=== PATIENT | male | born 1955 | race Caucasian/White ===

== ENCOUNTER 2020-02-24 07:52 | Day surgery (SDC) | payer MEDICARE, MEDICAID ==
[~2020-02-24 07:52] MED LIST: Midazolam 1 MG/ML 2 ML SDV ONE; fentaNYL 100 MCG/2 ML SDV ONE
[2020-02-24] MEDS ORDERED: fentaNYL 100 MCG/2 ML SDV IV ONE ×3 (07:53→08:43)
[2020-02-24] MEDS ORDERED: Midazolam 1 MG/ML 2 ML SDV IV ONE ×5 (07:53→08:46)
[2020-02-24] MEDS ORDERED: Dextrose 5%-0.45% NaCl 1,000 ML IV SCH (08:20)
--- NOTE | 2020-02-24 11:25 | OR ---
DATE: 02/24/2020 PREOPERATIVE DIAGNOSIS: Change in bowel function with significant diarrhea. POSTOPERATIVE DIAGNOSIS: Change in bowel function with significant diarrhea. PROCEDURE: Total colonoscopy. ANESTHESIA: Conscious sedation with IV Versed and fentanyl. SPECIMEN: None. OPERATIVE FINDINGS: Normal colonoscopy. RECOMMENDATION: His diarrhea is most likely functional, is not related to any structural problems in the colon that I can see. He will need alterations of his diet. PROCEDURE IN DETAIL: After adequate preparation, a colonoscope was inserted into the rectum. This was easily passed all the way to the cecum. Confirmation of the cecum was made by visualization of the ileocecal valve and the appendiceal opening. A photograph of the appendiceal opening was taken. The bowel prep was good. On withdrawal of the scope, there were no abnormalities. Anal and rectal examinations were also normal. Air was suctioned from the colon and the scope removed. [facility] /[id number]
== END 2020-02-24 10:30 | disposition home or self-care (01) ==
LOC: DL.ENDO 07:52
PROVIDERS: ATTEND Surgery
DX: R19.4 Change in bowel habit (principal); R19.7 Diarrhea, unspecified; Z01.812 Encounter for preprocedural laboratory examination; Z20.828 Contact with and (suspected) exposure to other viral communicable diseases; E11.9 Type 2 diabetes mellitus without complications; I10 Essential (primary) hypertension; R25.1 Tremor, unspecified; Z79.84 Long term (current) use of oral hypoglycemic drugs; Z79.899 Other long term (current) drug therapy; Z86.010 Personal history of colon polyps
CPT/HCPCS: J2250; J3010; J7042; U0002

== ENCOUNTER 2020-05-25 23:50 | Emergency (ER) | payer MEDICARE, MEDICAID ==
--- NOTE | 2020-05-25 23:58 | EDM.PDOC ---
ED HPI GENERAL MEDICAL PROBLEM - General Stated Complaint: DIABETIC COUNT IS 550... Time Seen by Provider: 05/25/20 23:57 Source of Information: Reports: Patient History Limitations: Reports: No Limitations - History of Present Illness INITIAL COMMENTS - FREE TEXT/NARRATIVE: c/o BS > 500. states was d/c from [facility] and couldn't find his insulin past 3 days and so hadn't used any. normally check BS twice daily and tonight it was high. denies CP/SOB/discomfort anywhere. - Related Data Allergies Allergy/AdvReac Type Severity Reaction Status Date / Time No Known Allergies Allergy Verified 05/26/20 00:00 Home Meds: Home Meds Aspirin [Lo-Dose Aspirin EC] 81 mg PO DAILY 02/20/20 [History] Cetirizine [ZyrTEC] 10 mg PO DAILY 02/20/20 [History] Dapagliflozin Propanediol [Farxiga] 10 mg PO DAILY 02/20/20 [History] Gabapentin [Neurontin] 300 mg PO DAILY PRN 02/20/20 [History] Glimepiride 4 mg PO DAILY 02/20/20 [History] Ibuprofen 600 mg PO TID PRN 02/20/20 [History] Loperamide [Imodium] 2 mg PO DAILY PRN 02/20/20 [History] Montelukast [Singulair] 10 mg PO DAILY 02/20/20 [History] Multivit-Min/Folic/Vit K/Lycop [One-A-Day Men's Tablet] 1 tab PO DAILY 02/20/20 [History] Omeprazole 20 mg PO BEDTIME 02/20/20 [History] Propranolol [Inderal LA 24 Hr] 80 mg PO DAILY 02/20/20 [History] Vortioxetine Hydrobromide [Brintellix] 10 mg PO DAILY 02/20/20 [History] atorvaSTATin [Lipitor] 10 mg PO BEDTIME 02/20/20 [History] busPIRone [Buspar] 15 mg PO BID 02/20/20 [History] hydrOXYzine HCL [Atarax] 25 mg PO Q4H PRN 02/20/20 [History] lamoTRIgine [Lamotrigine] 25 mg PO DAILY 02/20/20 [History] lamoTRIgine [Lamotrigine] 150 mg PO BEDTIME 02/20/20 [History] metFORMIN [Glucophage] 1,000 mg PO BIDMEALS 02/20/20 [History] Past Medical History HEENT History: Reports: Allergic Rhinitis, Cataract Cardiovascular History: Reports: High Cholesterol, Hypertension Respiratory History: Reports: SOB Gastrointestinal History: Reports: Chronic Diarrhea, GERD Genitourinary History: Reports: Other (See Below) Other Genitourinary History: NOCTURIA, FREQUENCY Musculoskeletal History: Reports: Arthritis, Back Pain, Chronic, Gout, Other (See Below) Other Musculoskeletal History: HERNIATION OF DISK L5 & S1, SPINAL STENOSIS @ L5 & S1 Neurological History: Reports: Other (See Below) Other Neuro History: DEMENTIA. HAND TREMORS Psychiatric History: Reports: Anxiety, Bipolar, Depression, Other (See Below) Other Psychiatric History: MENTAL CONFUSION Endocrine/Metabolic History: Reports: Diabetes, Type II Hematologic History: Reports: None Immunologic History: Reports: None Oncologic (Cancer) History: Reports: None Dermatologic History: Reports: Psoriasis - Infectious Disease History Infectious Disease History: Reports: Chicken Pox, Mumps - Past Surgical History Head Surgeries/Procedures: Reports: None HEENT Surgical History: Reports: None Cardiovascular Surgical History: Reports: None Respiratory Surgical History: Reports: None GI Surgical History: Reports: Colonoscopy Male Surgical History: Reports: None Endocrine Surgical History: Reports: None Musculoskeletal Surgical History: Reports: None Social & Family History - Caffeine Use Caffeine Use: Reports: Coffee Caffeine Use Comment: 8 oz daily ED ROS GENERAL - Review of Systems Review Of Systems: Comprehensive ROS is negative, except as noted in HPI. ED EXAM, GENERAL - Physical Exam Exam: See Below Exam Limited By: No Limitations General Appearance: Alert, WD/WN, No Apparent Distress Ears: Hearing Grossly Normal Throat/Mouth: Normal Voice, No Airway Compromise Head: Atraumatic Neck: Non-Tender, Full Range of Motion Respiratory/Chest: No Respiratory Distress Cardiovascular: Regular Rate, Rhythm GI/Abdominal: Soft, Non-Tender (Male) Exam: Deferred Rectal (Males) Exam: Deferred Neurological: Alert, Oriented, Normal Cognition, Normal Gait, No Motor/Sensory Deficits Psychiatric: Normal Affect, Normal Mood Skin Exam: Warm, Dry, Normal Color Lymphatic: No Adenopathy Course - Vital Signs Last Recorded V/S: Last Vital Signs Temp 35.8 C L 05/26/20 00:00 Pulse 84 05/26/20 00:00 Resp 16 05/26/20 00:00 BP 167/90 H 05/26/20 00:00 Pulse Ox 96 05/26/20 00:00 - Orders/Labs/Meds Orders: Active Orders 24 hr Category Date Time Status Sodium Chloride 0.9% [Normal Saline] 1,000 ml Med 05/26/20 00:53 Active IV .BOLUS Medication Orders Sodium Chloride (Normal Saline) 1,000 mls @ 999 mls/hr IV .BOLUS ONE Stop: 05/26/20 01:53 Last Admin: 05/26/20 00:54 Dose: 999 mls/hr Documented by: ROGE Labs: Laboratory Tests 05/25/20 05/26/20 05/26/20 Range/Units 23:56 00:06 00:06 WBC 8.2 (5.0-10.0) 10^3/uL RBC 4.86 (4.6-6.2) 10^6/uL Hgb 15.7 (14.0-18.0) g/dL Hct 44.9 (40.0-54.0) % MCV 92.4 D (80-100) fL MCH 32.3 (27.0-34.0) pg MCHC 35.0 (33.0-35.0) g/dL Plt Count 207 (150-450) 10^3/uL Neut % (Auto) 42.6 (42.2-75.2) % Lymph % (Auto) 39.9 (20.5-50.1) % [place] % (Auto) 12.6 H (2-8) % Eos % (Auto) 4.0 H (1.0-3.0) % Baso % (Auto) 0.9 (0.0-1.0) % Sodium 131 L (136-145) mmol/L Potassium 4.3 (3.5-5.1) mmol/L Chloride 94 L (98-107) mmol/L Carbon Dioxide 23 (21-32) mmol/L Anion Gap 18.3 H (7-13) mEq/L BUN 26 H (7-18) mg/dL Creatinine 1.23 (0.70-1.30) mg/dL Est Cr Clr Drug Dosing 61.00 mL/min Estimated GFR (MDRD) 59 BUN/Creatinine Ratio 21.1 (No establ ref range) Glucose 536 H* (74-99) mg/dL POC Glucose > 500 H* (70-105) mg/dl Lactic Acid (0.4-2.0) mmol/L Calcium 8.6 (8.5-10.1) mg/dL Total Bilirubin 0.5 (0.2-1.0) mg/dL AST 22 (15-37) U/L ALT 58 (16-63) U/L Alkaline Phosphatase 175 H (46-116) U/L Total Protein 7.4 (6.4-8.2) g/dL Albumin 4.0 (3.4-5.0) g/dL Globulin 3.4 Albumin/Globulin Ratio 1.2 Ketones Negative 05/26/20 05/26/20 Range/Units 00:06 00:51 WBC (5.0-10.0) 10^3/uL RBC (4.6-6.2) 10^6/uL Hgb (14.0-18.0) g/dL Hct (40.0-54.0) % MCV (80-100) fL MCH (27.0-34.0) pg MCHC (33.0-35.0) g/dL Plt Count (150-450) 10^3/uL Neut % (Auto) (42.2-75.2) % Lymph % (Auto) (20.5-50.1) % [place] % (Auto) (2-8) % Eos % (Auto) (1.0-3.0) % Baso % (Auto) (0.0-1.0) % Sodium (136-145) mmol/L Potassium (3.5-5.1) mmol/L Chloride (98-107) mmol/L Carbon Dioxide (21-32) mmol/L Anion Gap (7-13) mEq/L BUN (7-18) mg/dL Creatinine (0.70-1.30) mg/dL Est Cr Clr Drug Dosing mL/min Estimated GFR (MDRD) BUN/Creatinine Ratio (No establ ref range) Glucose (74-99) mg/dL POC Glucose 451 H* (70-105) mg/dl Lactic Acid 2.0 (0.4-2.0) mmol/L Calcium (8.5-10.1) mg/dL Total Bilirubin (0.2-1.0) mg/dL AST (15-37) U/L ALT (16-63) U/L Alkaline Phosphatase (46-116) U/L Total Protein (6.4-8.2) g/dL Albumin (3.4-5.0) g/dL Globulin Albumin/Globulin Ratio Ketones Meds: Medications Generic Name Dose Route Start Last Admin Trade Name Lissette PRN Reason Stop Dose Admin Sodium Chloride 1,000 mls @ 999 mls/hr 05/26/20 00:53 05/26/20 00:54 Normal Saline IV 05/26/20 01:53 999 mls/hr .BOLUS ONE Administration Discontinued Medications Generic Name Dose Route Start Last Admin Trade Name Lissette PRN Reason Stop Dose Admin Dextrose/Water 50 ml 05/26/20 00:12 Dextrose 50% In Water IV ASDIRECTED PRN Hypoglycemia Glucagon 1 mg 05/26/20 00:12 Glucagen IM ASDIRECTED PRN Hypoglycemia Sodium Chloride 1,000 mls @ 999 mls/hr 05/26/20 00:12 05/26/20 00:17 Normal Saline IV 05/26/20 01:12 999 mls/hr .BOLUS ONE Administration Insulin Human Regular 5 unit 05/26/20 00:12 05/26/20 00:18 Humulin R IV 05/26/20 00:13 5 units ONETIME ONE Administration - Re-Assessments/Exams Free Text/Narrative Re-Assessment/Exam: 05/26/20 01:24 results discussed with pt who has no c/o presently. has insulin at home now and will monitor. Departure - Departure Time of Disposition: 01:24 Disposition: Home, Self-Care 01 Condition: Good Clinical Impression: Hyperglycemia - Discharge Information Forms: ED Department Discharge Additional Instructions: 1) monitor blood sugar 2) recheck as needed Sepsis Event Note (ED) - Focused Exam Vital Signs: Vital Signs Temp Pulse Resp BP Pulse Ox 05/26/20 00:00 35.8 C L 84 16 167/90 H 96 - My Orders Last 24 Hours: My Active Orders 05/26/20 00:53 Sodium Chloride 0.9% [Normal Saline] 1,000 ml IV .BOLUS - Assessment/Plan Last 24 Hours: My Active Orders 05/26/20 00:53 Sodium Chloride 0.9% [Normal Saline] 1,000 ml IV .BOLUS
[2020-05-26] MEDS ORDERED: 50% Dextrose in Water 50 ML Syringe IV PRN (00:12)
[2020-05-26] MEDS ORDERED: Glucagon,Human Recombinant 1 MG Vial IM PRN (00:12)
[2020-05-26] MEDS: Sodium Chloride 0.9% 1,000 ML IV ONE ×2 (00:17→00:54)
[2020-05-26] MEDS: Insulin Regular, Human 100 Units/ML 3 ML Vial IV ONE (00:18)
[2020-05-26 00:39] LABS: ANION GAP 18.3 mEq/L (7-13); CHLORIDE,CL 94 mmol/L (98-107); SODIUM,NA 131 mmol/L (136-145)
== END 2020-05-26 01:31 | disposition home or self-care (01) ==
LOC: DL.ED 23:50
DX: E11.65 Type 2 diabetes mellitus with hyperglycemia (principal); I10 Essential (primary) hypertension; E78.00 Pure hypercholesterolemia, unspecified; K21.9 Gastro-esophageal reflux disease without esophagitis; F41.9 Anxiety disorder, unspecified; F31.9 Bipolar disorder, unspecified; Z79.82 Long term (current) use of aspirin; Z79.899 Other long term (current) drug therapy
CPT/HCPCS: 36415; 80053; 82009; 82962; 83605; 85025; 99283; 99284; J1815; J7030

== ENCOUNTER 2020-06-11 23:08 | Emergency (ER) | payer MEDICARE, MEDICAID ==
[2020-06-11 23:59] LABS: ANION GAP 16.2 mEq/L (7-13); CHLORIDE,CL 99 mmol/L (98-107); SODIUM,NA 138 mmol/L (136-145)
[2020-06-12] MEDS ORDERED: Iopamidol 612 MG/ML 100 ML Bottle IVPUSH ONE (00:23)
--- NOTE | 2020-06-12 01:04 | CT ---
PROCEDURE INFORMATION: Exam: CT Abdomen And Pelvis With Contrast Exam date and time: 06/12/2020 12:31 AM Age: 64 years old Clinical indication: Other: Abdomen pain TECHNIQUE: Imaging protocol: Computed tomography of the abdomen and pelvis with intravenous contrast. Radiation optimization: All CT scans at this facility use at least one of these dose optimization techniques: automated exposure control; mA and/or kV adjustment per patient size (includes targeted exams where dose is matched to clinical indication); or iterative reconstruction. Contrast material: ISOVUE 300; Contrast volume: 100 ml; Contrast route: INTRAVENOUS (IV); COMPARISON: No relevant prior studies available. FINDINGS: Liver: Normal. No mass. Gallbladder and bile ducts: Normal. No calcified stones. No ductal dilation. Pancreas: Normal. No ductal dilation. Spleen: Normal. No splenomegaly. Adrenal glands: Normal. No mass. Kidneys and ureters: Normal. No hydronephrosis. Stomach and bowel: Unremarkable. No obstruction. No mucosal thickening. Appendix: No evidence of appendicitis. Intraperitoneal space: Unremarkable. No free air. No significant fluid collection. Vasculature: Unremarkable. No abdominal aortic aneurysm. Lymph nodes: Unremarkable. No enlarged lymph nodes. Urinary bladder: Unremarkable as visualized. Reproductive: Unremarkable as visualized. Bones/joints: Unremarkable. No acute fracture. Soft tissues: Unremarkable. IMPRESSION: No acute findings.
--- NOTE | 2020-06-12 01:08 | EDM.PDOC ---
ED HPI GENERAL MEDICAL PROBLEM - General Chief Complaint: Abdominal Pain Stated Complaint: SEVERE STOMACHE PAIN Time Seen by Provider: 06/11/20 23:40 Source of Information: Reports: Patient, RN, RN Notes Reviewed History Limitations: Reports: Other (Forgetfulness, he states this is not new for him) - History of Present Illness INITIAL COMMENTS - FREE TEXT/NARRATIVE: Patient is a 64-year-old male who presents to the ER with complaint of periumbilical abdominal pain. Patient states the pain began about 3 PM today. States he has had some nausea, vomiting, and diarrhea with the pain. Patient admits to chills, denies fever, denies chest pains or shortness of breath. Patient states he was told by a doctor several years ago that if he began to have pain around his bellybutton that he was to go directly to the emergency room. Patient states he thinks he has a history of hernias. Denies any abdominal surgeries, states he does still have his gallbladder and his appendix. Patient is diabetic and takes oral agents.-Before diarrhea began, patient is unable to recall when last normal bowel movement was. Onset: Today, Sudden Lower Abdominal Pain Score (Numeric/FACES): 7 - Related Data Allergies Allergy/AdvReac Type Severity Reaction Status Date / Time No Known Allergies Allergy Verified 06/11/20 23:21 Home Meds: Home Meds Aspirin [Lo-Dose Aspirin EC] 81 mg PO DAILY 02/20/20 [History] Cetirizine [ZyrTEC] 10 mg PO DAILY 02/20/20 [History] Dapagliflozin Propanediol [Farxiga] 10 mg PO DAILY 02/20/20 [History] Gabapentin [Neurontin] 300 mg PO DAILY PRN 02/20/20 [History] Glimepiride 4 mg PO DAILY 02/20/20 [History] Ibuprofen 600 mg PO TID PRN 02/20/20 [History] Loperamide [Imodium] 2 mg PO DAILY PRN 02/20/20 [History] Montelukast [Singulair] 10 mg PO DAILY 02/20/20 [History] Multivit-Min/Folic/Vit K/Lycop [One-A-Day Men's Tablet] 1 tab PO DAILY 02/20/20 [History] Omeprazole 20 mg PO BEDTIME 02/20/20 [History] Propranolol [Inderal LA 24 Hr] 80 mg PO DAILY 02/20/20 [History] Vortioxetine Hydrobromide [Brintellix] 10 mg PO DAILY 02/20/20 [History] atorvaSTATin [Lipitor] 10 mg PO BEDTIME 02/20/20 [History] busPIRone [Buspar] 15 mg PO BID 02/20/20 [History] hydrOXYzine HCL [Atarax] 25 mg PO Q4H PRN 02/20/20 [History] lamoTRIgine [Lamotrigine] 25 mg PO DAILY 02/20/20 [History] lamoTRIgine [Lamotrigine] 150 mg PO BEDTIME 02/20/20 [History] metFORMIN [Glucophage] 1,000 mg PO BIDMEALS 02/20/20 [History] Past Medical History HEENT History: Reports: Allergic Rhinitis, Cataract Cardiovascular History: Reports: High Cholesterol, Hypertension Respiratory History: Reports: SOB Gastrointestinal History: Reports: Chronic Diarrhea, GERD Genitourinary History: Reports: Other (See Below) Other Genitourinary History: NOCTURIA, FREQUENCY Musculoskeletal History: Reports: Arthritis, Back Pain, Chronic, Gout, Other (See Below) Other Musculoskeletal History: HERNIATION OF DISK L5 & S1, SPINAL STENOSIS @ L5 & S1 Neurological History: Reports: Other (See Below) Other Neuro History: DEMENTIA. HAND TREMORS Psychiatric History: Reports: Anxiety, Bipolar, Depression, Other (See Below) Other Psychiatric History: MENTAL CONFUSION Endocrine/Metabolic History: Reports: Diabetes, Type II Hematologic History: Reports: None Immunologic History: Reports: None Oncologic (Cancer) History: Reports: None Dermatologic History: Reports: Psoriasis - Infectious Disease History Infectious Disease History: Reports: Chicken Pox, Mumps - Past Surgical History Head Surgeries/Procedures: Reports: None HEENT Surgical History: Reports: None Cardiovascular Surgical History: Reports: None Respiratory Surgical History: Reports: None GI Surgical History: Reports: Colonoscopy Male Surgical History: Reports: None Endocrine Surgical History: Reports: None Musculoskeletal Surgical History: Reports: None Social & Family History - Tobacco Use Tobacco Use Status *Q: Never Tobacco User Second Hand Smoke Exposure: No - Caffeine Use Caffeine Use: Reports: None Caffeine Use Comment: 8 oz daily - Recreational Drug Use Recreational Drug Use: No ED ROS GENERAL - Review of Systems Review Of Systems: Comprehensive ROS is negative, except as noted in HPI. ED EXAM, GI/ABD - Physical Exam Exam: See Below Exam Limited By: No Limitations General Appearance: Alert, WD/WN, No Apparent Distress Eyes: Bilateral: Normal Appearance, EOMI Ears: Normal External Exam, Hearing Grossly Normal Nose: Normal Inspection Throat/Mouth: Normal Inspection, Normal Voice, No Airway Compromise Head: Atraumatic, Normocephalic Neck: Normal Inspection, Supple, Non-Tender, Full Range of Motion Respiratory/Chest: No Respiratory Distress, Lungs Clear, Normal Breath Sounds, No Accessory Muscle Use, Chest Non-Tender, Decreased Breath Sounds Cardiovascular: Normal Peripheral Pulses, Regular Rate, Rhythm, No Edema, No Gallop, No JVD, No Murmur, No Rub GI/Abdominal Exam: Normal Bowel Sounds, Soft, Non-Tender, No Organomegaly, No Distention, No Abnormal Bruit, No Mass, Pelvis Stable, Tender (Male) Exam: Deferred Rectal (Males) Exam: Deferred Back Exam: Normal Inspection, Full Range of Motion, NT Extremities: Normal Inspection, Normal Range of Motion, Non-Tender, Normal Capillary Refill, No Pedal Edema Neurological: Alert, Oriented, CN II-XII Intact, Normal Gait, Normal Reflexes, No Motor/Sensory Deficits, Memory Loss Remote Events Psychiatric: Normal Affect, Normal Mood, Anxious Skin Exam: Warm, Dry, Intact, Normal Color, No Rash Lymphatic: No Adenopathy Course - Vital Signs Last Recorded V/S: Last Vital Signs Temp 96.7 F L 06/11/20 23:18 Pulse 93 06/11/20 23:18 Resp 20 06/11/20 23:18 BP 141/86 H 06/11/20 23:18 Pulse Ox 97 06/11/20 23:18 - Orders/Labs/Meds Orders: Active Orders 24 hr Category Date Time Status Blood Glucose Check, Bedside [RC] ONETIME Care 06/11/20 23:23 Active Labs: Laboratory Tests 06/11/20 06/11/20 06/11/20 Range/Units 23:19 23:21 23:21 WBC 7.7 (5.0-10.0) 10^3/uL RBC 5.56 (4.6-6.2) 10^6/uL Hgb 17.5 D (14.0-18.0) g/dL Hct 50.6 (40.0-54.0) % MCV 91.0 (80-100) fL MCH 31.5 (27.0-34.0) pg MCHC 34.6 (33.0-35.0) g/dL Plt Count 222 (150-450) 10^3/uL Neut % (Auto) 50.6 (42.2-75.2) % Lymph % (Auto) 30.5 (20.5-50.1) % [place] % (Auto) 16.2 H (2-8) % Eos % (Auto) 2.0 (1.0-3.0) % Baso % (Auto) 0.7 (0.0-1.0) % Sodium 138 (136-145) mmol/L Potassium 4.2 (3.5-5.1) mmol/L Chloride 99 (98-107) mmol/L Carbon Dioxide 27 (21-32) mmol/L Anion Gap 16.2 H (7-13) mEq/L BUN 15 (7-18) mg/dL Creatinine 1.01 (0.70-1.30) mg/dL Est Cr Clr Drug Dosing 74.28 mL/min Estimated GFR (MDRD) > 60 BUN/Creatinine Ratio 14.9 (No establ ref range) Glucose 211 H (74-99) mg/dL POC Glucose 211 H (70-105) mg/dl Lactic Acid (0.4-2.0) mmol/L Calcium 9.9 (8.5-10.1) mg/dL Total Bilirubin 0.5 (0.2-1.0) mg/dL AST 37 (15-37) U/L ALT 79 H (16-63) U/L Alkaline Phosphatase 81 (46-116) U/L Troponin I < 0.017 (0.000-0.056) ng/mL C-Reactive Protein 0.4 (0.0-0.9) mg/dL Total Protein 8.4 H (6.4-8.2) g/dL Albumin 4.5 (3.4-5.0) g/dL Globulin 3.9 Albumin/Globulin Ratio 1.2 Urine Color (YELLOW) Urine Appearance (CLEAR) Urine pH (5.0-9.0) Ur Specific [place] (1.005-1.030) Urine Protein (NEGATIVE) Urine Glucose (UA) (NEGATIVE) Urine Ketones (NEGATIVE) Urine Occult Blood (NEGATIVE) Urine Nitrite (NEGATIVE) Urine Bilirubin (NEGATIVE) Urine Urobilinogen (0.2-1.0) mg/dL Ur Leukocyte Esterase (NEGATIVE) Urine RBC /HPF Urine WBC (0-5/HPF) /HPF Ur Epithelial Cells (NOT SEEN) /HPF Amorphous Sediment (NOT SEEN) /HPF Urine Bacteria (0-FEW/HPF) /HPF Granular Casts (Auto) Urine Mucus (NOT SEEN) /LPF Ethyl Alcohol < 3 (0) mg/dL 06/11/20 06/11/20 Range/Units 23:21 23:35 WBC (5.0-10.0) 10^3/uL RBC (4.6-6.2) 10^6/uL Hgb (14.0-18.0) g/dL Hct (40.0-54.0) % MCV (80-100) fL MCH (27.0-34.0) pg MCHC (33.0-35.0) g/dL Plt Count (150-450) 10^3/uL Neut % (Auto) (42.2-75.2) % Lymph % (Auto) (20.5-50.1) % [place] % (Auto) (2-8) % Eos % (Auto) (1.0-3.0) % Baso % (Auto) (0.0-1.0) % Sodium (136-145) mmol/L Potassium (3.5-5.1) mmol/L Chloride (98-107) mmol/L Carbon Dioxide (21-32) mmol/L Anion Gap (7-13) mEq/L BUN (7-18) mg/dL Creatinine (0.70-1.30) mg/dL Est Cr Clr Drug Dosing mL/min Estimated GFR (MDRD) BUN/Creatinine Ratio (No establ ref range) Glucose (74-99) mg/dL POC Glucose (70-105) mg/dl Lactic Acid 1.1 (0.4-2.0) mmol/L Calcium (8.5-10.1) mg/dL Total Bilirubin (0.2-1.0) mg/dL AST (15-37) U/L ALT (16-63) U/L Alkaline Phosphatase (46-116) U/L Troponin I (0.000-0.056) ng/mL C-Reactive Protein (0.0-0.9) mg/dL Total Protein (6.4-8.2) g/dL Albumin (3.4-5.0) g/dL Globulin Albumin/Globulin Ratio Urine Color Yellow (YELLOW) Urine Appearance Clear (CLEAR) Urine pH 6.0 (5.0-9.0) Ur Specific [place] >= 1.030 (1.005-1.030) Urine Protein 100 H (NEGATIVE) Urine Glucose (UA) 500 H (NEGATIVE) Urine Ketones 15 H (NEGATIVE) Urine Occult Blood Negative (NEGATIVE) Urine Nitrite Negative (NEGATIVE) Urine Bilirubin Negative (NEGATIVE) Urine Urobilinogen 0.2 (0.2-1.0) mg/dL Ur Leukocyte Esterase Negative (NEGATIVE) Urine RBC Not seen /HPF Urine WBC 0-5 (0-5/HPF) /HPF Ur Epithelial Cells Rare (NOT SEEN) /HPF Amorphous Sediment Rare (NOT SEEN) /HPF Urine Bacteria Rare (0-FEW/HPF) /HPF Granular Casts (Auto) Occasional Urine Mucus Few H (NOT SEEN) /LPF Ethyl Alcohol (0) mg/dL Meds: Medications Discontinued Medications Generic Name Dose Route Start Last Admin Trade Name Freq PRN Reason Stop Dose Admin Iopamidol 100 ml 06/12/20 00:23 06/12/20 00:57 Isovue-300 (61%) IVPUSH 06/12/20 00:24 100 ml ONETIME ONE Administration - Radiology Interpretation Free Text/Narrative:: Abdomen/Pelvis with contrast: PROCEDURE INFORMATION: Exam: CT Abdomen And Pelvis With Contrast Exam date and time: 06/12/2020 12:31 AM Age: 64 years old Clinical indication: Other: Abdomen pain TECHNIQUE: Imaging protocol: Computed tomography of the abdomen and pelvis with intravenous contrast. Radiation optimization: All CT scans at this facility use at least one of these dose optimization techniques: automated exposure control; mA and/or kV adjustment per patient size (includes targeted exams where dose is matched to clinical indication); or iterative reconstruction. Contrast material: ISOVUE 300; Contrast volume: 100 ml; Contrast route: INTRAVENOUS (IV); COMPARISON: No relevant prior studies available. FINDINGS: Liver: Normal. No mass. Gallbladder and bile ducts: Normal. No calcified stones. No ductal dilation. Pancreas: Normal. No ductal dilation. Spleen: Normal. No splenomegaly. Adrenal glands: Normal. No mass. Kidneys and ureters: Normal. No hydronephrosis. Stomach and bowel: Unremarkable. No obstruction. No mucosal thickening. Appendix: No evidence of appendicitis. Intraperitoneal space: Unremarkable. No free air. No significant fluid collection. Vasculature: Unremarkable. No abdominal aortic aneurysm. Lymph nodes: Unremarkable. No enlarged lymph nodes. Urinary bladder: Unremarkable as visualized. Reproductive: Unremarkable as visualized. Bones/joints: Unremarkable. No acute fracture. Soft tissues: Unremarkable. IMPRESSION: No acute findings. Thank you for allowing us to participate in the care of your patient. Dictated and Authenticated by: Carina Leroy MD 06/12/2020 1:04 AM Central Time ([place] & [place]) See rad report Departure - Departure Time of Disposition: :21 Disposition: Home, Self-Care 01 Condition: Good Clinical Impression: Gastroenteritis - Discharge Information *PRESCRIPTION DRUG MONITORING PROGRAM REVIEWED*: No *COPY OF PRESCRIPTION DRUG MONITORING REPORT IN PATIENT KIRILL: No Instructions: Viral Gastroenteritis, Adult, [id number], Abdominal Pain, Adult, [id number] Forms: ED Department Discharge Sepsis Event Note (ED) - Evaluation Sepsis Screening Result: No Definite Risk - Focused Exam Vital Signs: Vital Signs Temp Pulse Resp BP Pulse Ox 06/11/20 23:18 96.7 F L 93 20 141/86 H 97 - My Orders Last 24 Hours: My Active Orders 06/11/20 23:23 Blood Glucose Check, Bedside [RC] ONETIME - Assessment/Plan Last 24 Hours: My Active Orders 06/11/20 23:23 Blood Glucose Check, Bedside [RC] ONETIME
== END 2020-06-12 01:30 | disposition home or self-care (01) ==
LOC: DL.ED 23:08
DX: K52.9 Noninfective gastroenteritis and colitis, unspecified (principal); I10 Essential (primary) hypertension; E78.00 Pure hypercholesterolemia, unspecified; K21.9 Gastro-esophageal reflux disease without esophagitis; E11.9 Type 2 diabetes mellitus without complications; F41.9 Anxiety disorder, unspecified; F31.9 Bipolar disorder, unspecified; Z79.82 Long term (current) use of aspirin; Z79.899 Other long term (current) drug therapy
CPT/HCPCS: 36415; 74177; 80053; 80307; 81001; 81003; 82962; 83605; 84484; 85025; 86140; 99282; 99284-25; Q9967

== ENCOUNTER 2020-11-22 01:28 | Emergency (ER) | payer MEDICARE, MEDICAID | END 2020-11-22 02:18 | disposition left against medical advice (07) | LOC: DL.ED 01:28 | DX: Z53.21 Procedure and treatment not carried out due to patient leaving prior to being seen by health care provider (principal) ==

== ENCOUNTER 2021-09-04 11:52 | Emergency (ER) | payer MEDICARE, MEDICAID ==
[2021-09-04 14:03] LABS: ANION GAP 18.1 mEq/L (7-13); CHLORIDE,CL 98 mmol/L (98-107); SODIUM,NA 136 mmol/L (136-145)
[2021-09-04] MEDS ORDERED: Iopamidol 612 MG/ML 100 ML Bottle IVPUSH ONE (14:20)
[2021-09-04] MEDS ORDERED: HYDROmorphone 0.5 MG/0.5 ML Syringe IVPUSH ONE (14:53)
[2021-09-04] MEDS ORDERED: Piperacillin/Tazobactam 4.5 GM in Sodium Chloride 0.9% 100 ML IV ONE (14:53)
== END 2021-09-04 16:08 ==
LOC: DL.ED 11:52
DX: S06.5X0A Traumatic subdural hemorrhage without loss of consciousness, initial encounter (principal); K35.80 Unspecified acute appendicitis; E78.00 Pure hypercholesterolemia, unspecified; I10 Essential (primary) hypertension; K21.9 Gastro-esophageal reflux disease without esophagitis; E11.9 Type 2 diabetes mellitus without complications; Z79.82 Long term (current) use of aspirin; Z79.899 Other long term (current) drug therapy; W19.XXXA Unspecified fall, initial encounter
CPT/HCPCS: 36415; 70450; 74177; 80053; 80307; 82947; 83605; 83690; 83735; 84443; 84484; 85025; 86140; 87040; 96374; 96375; 99285; J1170; J2543; Q9967; 93010

== ENCOUNTER 2021-10-04 11:52 | Emergency (ER) | payer MEDICARE, MEDICAID ==
[2021-10-04 12:59] LABS: ANION GAP 18.2 mEq/L (7-13); CHLORIDE,CL 102 mmol/L (98-107); SODIUM,NA 138 mmol/L (136-145)
[2021-10-04] MEDS ORDERED: Sodium Chloride 0.9% 1,000 ML IV ONE (13:02)
== END 2021-10-04 13:55 | disposition home or self-care (01) ==
LOC: DL.ED 11:52
DX: G45.9 Transient cerebral ischemic attack, unspecified (principal); E11.9 Type 2 diabetes mellitus without complications; E78.00 Pure hypercholesterolemia, unspecified; I10 Essential (primary) hypertension; K21.9 Gastro-esophageal reflux disease without esophagitis; Z79.82 Long term (current) use of aspirin; Z79.899 Other long term (current) drug therapy
CPT/HCPCS: 36415; 70450; 80053; 82140; 82607; 83605; 83735; 84443; 85025; 85610; 86140; 87040; 93005; 99285-25; J7030

== ENCOUNTER 2021-10-08 12:26 | Inpatient (IN) | payer MEDICARE, MEDICAID ==
[2021-10-08] MEDS ORDERED: Sodium Chloride 0.9% 10 ML Syringe FLUSH PRN (12:39)
[2021-10-08 13:22] LABS: PTT,PARTIAL THROMBOPLSTIN TIME 23.4 SEC (22.0-34.0)
[2021-10-08 13:28] LABS: ANION GAP 17.7 mEq/L (7-13); CHLORIDE,CL 100 mmol/L (98-107); SODIUM,NA 135 mmol/L (136-145)
[2021-10-08 17:15] LABS: AMPHETAMINES,URINE NEGATIVE (NEGATIVE); BARBITURATES,URINE NEGATIVE (NEGATIVE); BENZODIAZEPINE,URINE NEGATIVE (NEGATIVE); MDMA (ECSTASY), URINE NEGATIVE (NEGATIVE); METHADONE,URINE NEGATIVE (NEGATIVE); METHAMPHETAMINES,URINE NEGATIVE (NEGATIVE); OPIATES,URINE NEGATIVE (NEGATIVE); OXYCODONE,URINE NEGATIVE (NEGATIVE); PHENCYCLIDINE,URINE POSITIVE (NEGATIVE); TCA,URINE NEGATIVE (NEGATIVE)
[2021-10-08] MEDS ORDERED: Aspirin 81 MG Tab.Chew PO ONE (18:19)
[2021-10-08] MEDS ORDERED: Acetaminophen 325 MG Tab PO PRN (18:20)
[2021-10-08] MEDS ORDERED: Acetaminophen/HYDROcodone 325-5 MG Tab PO PRN (18:20)
[2021-10-08] MEDS ORDERED: Ondansetron 4 MG/2 ML SDV IVPUSH PRN (18:26)
[2021-10-08] MEDS ORDERED: Polyethylene Glycol 3350 Powder 17 GM Packet PO PRN (18:26)
[2021-10-08] MEDS ORDERED: Ketorolac 30 MG/ML SDV IVPUSH PRN (18:26)
[2021-10-08] MEDS ORDERED: HYDROmorphone 0.5 MG/0.5 ML Syringe IVPUSH PRN (18:26)
[2021-10-08] MEDS ORDERED: Albuterol/Ipratropium 3.0-0.5 MG/3 ML Neb Soln NEB PRN (18:26)
[2021-10-08] MEDS ORDERED: Bisacodyl 5 MG Tab PO PRN (18:26)
[2021-10-08] MEDS ORDERED: Docusate Sodium 100 MG Cap PO PRN (18:26)
[2021-10-08] MEDS ORDERED: 50% Dextrose in Water 50 ML Syringe IVPUSH PRN (18:33)
[2021-10-08] MEDS ORDERED: Glucagon,Human Recombinant 1 MG Vial IM PRN (18:33)
[2021-10-09 08:09] LABS: ANION GAP 12.7 mEq/L (7-13); CHLORIDE,CL 103 mmol/L (98-107); SODIUM,NA 138 mmol/L (136-145)
[2021-10-09 09:53] LABS: HEMOGLOBIN A1C 6.7 % (<5.7)
[2021-10-09] MEDS: Insulin Lispro 100 Units/ML 3 ML Vial SUBCUT SCH ×2 (10:10→17:29)
[2021-10-09] MEDS ORDERED: Propranolol 80 MG Cap.ER PO ONE (11:59)
[2021-10-09] MEDS: Multivitamins with Iron/Calcium/Folic Acid/Minerals Tab PO SCH (12:36)
[2021-10-09] MEDS: Naproxen 500 MG Tab PO SCH ×2 (12:36→17:27)
[2021-10-09] MEDS: Glimepiride 2 MG Tab PO SCH (12:36)
[2021-10-09] MEDS: Furosemide 20 MG Tab PO SCH (12:37)
[2021-10-09] MEDS: metFORMIN 500 MG Tab PO SCH ×2 (12:37→17:27)
[2021-10-09] MEDS: Aspirin 81 MG Tab.EC PO SCH (12:37)
[2021-10-09] MEDS: lamoTRIgine 100 MG Tab PO SCH (12:39)
[2021-10-09] MEDS ORDERED: lamoTRIgine 100 MG Tab PO SCH (21:00)
[2021-10-09] MEDS ORDERED: hydrOXYzine HCl 25 MG Tab PO SCH (21:00)
[2021-10-09] MEDS ORDERED: Montelukast 10 MG Tab PO SCH (21:00)
[2021-10-09] MEDS ORDERED: Gabapentin 400 MG Cap PO SCH (21:00)
[2021-10-09] MEDS ORDERED: traZODone 50 MG Tab PO SCH (21:00)
[2021-10-09] MEDS ORDERED: Propranolol 80 MG Cap.ER PO SCH (21:00)
[2021-10-09] MEDS ORDERED: Loratadine 10 MG Tab PO SCH (21:00)
[2021-10-09] MEDS ORDERED: Sertraline 50 MG Tab PO SCH (21:00)
[2021-10-09] MEDS ORDERED: Melatonin 3 MG Tab PO SCH (21:00)
[2021-10-09] MEDS ORDERED: atorvaSTATin 10 MG Tab PO SCH (21:00)
[2021-10-09] MEDS ORDERED: Omeprazole 20 MG Cap.CR PO SCH (21:00)
[2021-10-10 07:26] LABS: ANION GAP 16.6 mEq/L (7-13); CHLORIDE,CL 105 mmol/L (98-107); SODIUM,NA 143 mmol/L (136-145)
[2021-10-10] MEDS: metFORMIN 500 MG Tab PO SCH (08:49)
[2021-10-10] MEDS: Multivitamins with Iron/Calcium/Folic Acid/Minerals Tab PO SCH (08:49)
[2021-10-10] MEDS: Glimepiride 2 MG Tab PO SCH (08:50)
[2021-10-10] MEDS: Aspirin 81 MG Tab.EC PO SCH (08:50)
[2021-10-10] MEDS: Naproxen 500 MG Tab PO SCH (08:50)
[2021-10-10] MEDS: lamoTRIgine 100 MG Tab PO SCH (08:50)
[2021-10-10] MEDS: Furosemide 20 MG Tab PO SCH (08:51)
[2021-10-10] MEDS: Insulin Lispro 100 Units/ML 3 ML Vial SUBCUT SCH (08:53)
[2021-10-10] MEDS ORDERED: Non-Formulary Medication 1 Each (Dapagliflozin Propanediol [Farxiga] 10 MG Tablet) PO SCH (09:00)
== END 2021-10-10 14:30 | disposition home or self-care (01) | DRG 897 ==
LOC: DL.ED 12:26 → DL.MS 17:39
PROVIDERS: ADMIT Internal Medicine; ATTEND Internal Medicine
DX: R41.0 Disorientation, unspecified (principal); F10.929 Alcohol use, unspecified with intoxication, unspecified; F10.129 Alcohol abuse with intoxication, unspecified; E87.1 Hypo-osmolality and hyponatremia; H54.7 Unspecified visual loss; I10 Essential (primary) hypertension; J30.9 Allergic rhinitis, unspecified; E78.5 Hyperlipidemia, unspecified; K21.9 Gastro-esophageal reflux disease without esophagitis; K52.9 Noninfective gastroenteritis and colitis, unspecified; M19.90 Unspecified osteoarthritis, unspecified site; G89.29 Other chronic pain; M54.9 Dorsalgia, unspecified; M10.9 Gout, unspecified; E11.9 Type 2 diabetes mellitus without complications; M48.07 Spinal stenosis, lumbosacral region; Z79.84 Long term (current) use of oral hypoglycemic drugs; M51.26 Other intervertebral disc displacement, lumbar region; Z79.899 Other long term (current) drug therapy; M48.061 Spinal stenosis, lumbar region without neurogenic claudication; R41.3 Other amnesia; F03.90 Unspecified dementia, unspecified severity, without behavioral disturbance, psychotic disturbance, mood disturbance, and anxiety; G62.9 Polyneuropathy, unspecified; G40.909 Epilepsy, unspecified, not intractable, without status epilepticus; Z86.73 Personal history of transient ischemic attack (TIA), and cerebral infarction without residual deficits; F31.9 Bipolar disorder, unspecified; F41.9 Anxiety disorder, unspecified; G47.00 Insomnia, unspecified; Z79.82 Long term (current) use of aspirin; R29.6 Repeated falls; Z20.822 Contact with and (suspected) exposure to COVID-19; E78.00 Pure hypercholesterolemia, unspecified; E11.65 Type 2 diabetes mellitus with hyperglycemia; Y90.6 Blood alcohol level of 120-199 mg/100 ml; R26.89 Other abnormalities of gait and mobility; R25.1 Tremor, unspecified; G20 Parkinson's disease; E78.1 Pure hyperglyceridemia; Z79.4 Long term (current) use of insulin; R29.700 NIHSS score 0
CPT/HCPCS: 36415; 70450; 70551; 80048; 80053; 80061; 80305-QW; 80307; 81001; 82947; 83036; 83735; 84443; 84484; 85025; 85610; 85730; 86140; 93005; 93010; 93880; 97161-GP; 97165-GO; 97530-GO; 99284; 99285-25; A9270-GY; J1815-GY; J3490; U0002

== ENCOUNTER 2022-05-28 16:23 | Emergency (ER) | payer MEDICARE, MEDICAID ==
[2022-05-28 17:30] LABS: ACETAMINOPHEN 0 ug/mL (10-30 (Therapeutic)); ANION GAP 12.3 mEq/L (7-13); CHLORIDE,CL 105 mmol/L (98-107); ESTIMATED GFR 85 mL/min (>=60); SODIUM,NA 144 mmol/L (136-145)
== END 2022-05-28 18:38 | disposition home or self-care (01) ==
LOC: DL.ED 16:23
DX: R42 Dizziness and giddiness (principal); F10.90 Alcohol use, unspecified, uncomplicated; E78.00 Pure hypercholesterolemia, unspecified; I10 Essential (primary) hypertension; K21.9 Gastro-esophageal reflux disease without esophagitis; M10.9 Gout, unspecified; E11.9 Type 2 diabetes mellitus without complications; Y90.6 Blood alcohol level of 120-199 mg/100 ml; Z79.4 Long term (current) use of insulin; Z79.82 Long term (current) use of aspirin; Z79.899 Other long term (current) drug therapy
CPT/HCPCS: 36415; 80053; 80143; 80179; 80307; 82140; 83605; 84484; 85025; 93005; 99284

== ENCOUNTER 2022-08-19 06:58 | Day surgery (SDC) | payer MEDICARE, MEDICAID ==
[~2022-08-19 06:58] MED LIST changes: +Dextrose 5%-0.45% NaCl 1,000 ML IV SCH; -Midazolam 1 MG/ML 2 ML SDV ONE; +Sodium Chloride 0.9% 10 ML Syringe FLUSH PRN; +Sodium Chloride 0.9% 10 ML Syringe FLUSH SCH; -fentaNYL 100 MCG/2 ML SDV ONE
[2022-08-19] MEDS ORDERED: Dextrose 5%-0.45% NaCl 1,000 ML IV SCH (07:45)
[2022-08-19] MEDS ORDERED: fentaNYL 100 MCG/2 ML SDV ONE (08:16)
[2022-08-19] MEDS ORDERED: Midazolam 1 MG/ML 2 ML SDV ONE (08:17)
[2022-08-19] MEDS ORDERED: fentaNYL 100 MCG/2 ML SDV IV ONE ×2 (08:22→08:23)
[2022-08-19] MEDS ORDERED: Midazolam 1 MG/ML 2 ML SDV IV ONE ×2 (08:23→08:24)
== END 2022-08-19 10:27 | disposition home or self-care (01) ==
LOC: DL.ENDO 06:58
PROVIDERS: ATTEND Internal Medicine Gastroenterology
DX: Z12.11 Encounter for screening for malignant neoplasm of colon (principal); K57.30 Diverticulosis of large intestine without perforation or abscess without bleeding; K64.8 Other hemorrhoids; E78.5 Hyperlipidemia, unspecified; E11.9 Type 2 diabetes mellitus without complications; F41.1 Generalized anxiety disorder; G20 Parkinson's disease; F32.A Depression, unspecified; E66.09 Other obesity due to excess calories; Z68.31 Body mass index [BMI] 31.0-31.9, adult; Z86.010 Personal history of colon polyps; Z79.82 Long term (current) use of aspirin; Z98.890 Other specified postprocedural states
CPT/HCPCS: J2250; J3010; J7042

== ENCOUNTER 2022-11-02 13:09 | Inpatient (IN) | payer MEDICARE, MEDICAID ==
[2022-11-02 12:04] LABS: BASOPHILS PERCENT AUTO 0.3 % (0.0-1.0); HEMATOCRIT 47.5 % (40.0-54.0); HEMOGLOBIN 15.9 g/dL (14.0-18.0); LYMPHOCYTES PERCENT AUTO 7.3 % (20.5-50.1); MEAN CORPUSCULAR HEMOGLOBIN 30.7 pg (27.0-34.0); MEAN CORPUSCULAR HGB CONC 33.5 g/dL (33.0-35.0); MEAN CORPUSCULAR VOLUME 91.7 fL (80-100); MONOCYTES PERCENT AUTO 6.5 % (2-8); NEUTROPHILS PERCENT AUTO 85.9 % (42.2-75.2); PLATELET COUNT,PLT 387 10^3/uL (150-450); RED BLOOD CELL COUNT 5.18 10^6/uL (4.6-6.2); WHITE BLOOD CELL COUNT,WBC 15.1 10^3/uL (5.0-10.0)
[2022-11-02 12:36] LABS: LACTIC ACID 4.7 mmol/L (0.4-2.0)
[2022-11-02 12:38] LABS: ALANINE AMINOTRANSFERASE,ALT 105 U/L (16-63); ALBUMIN 4.2 g/dL (3.4-5.0); ALKALINE PHOSPHATASE 96 U/L (46-116); AMYLASE 29 U/L (25-115); ANION GAP 33.2 mEq/L (7-13); ASPARTATE AMNIOTRANSFERASE,AST 33 U/L (15-37); BILIRUBIN TOTAL 0.7 mg/dL (0.2-1.0); BLOOD UREA NITROGEN,BUN 20 mg/dL (7-18); BUN/CREATININE RATIO 10.5 (No establ ref range); C-REACTIVE PROTEIN 0.3 mg/dL (0.0-0.9); CALCIUM 9.5 mg/dL (8.5-10.1); CARBON DIOXIDE,CO2 11 mmol/L (21-32); CHLORIDE,CL 99 mmol/L (98-107); CREATININE 1.91 mg/dL (0.70-1.30); EST CRCL DRUG DOSING (CG) 35.81 mL/min; LIPASE 162 U/L (73-393); MAGNESIUM 1.8 mg/dL (1.8-2.4); POTASSIUM,K 5.2 mmol/L (3.5-5.1); PROTEIN TOTAL,TP 8.2 g/dL (6.4-8.2); SODIUM,NA 138 mmol/L (136-145); TSH ULTRASENSITIVE 3.37 uIU/mL (0.36-3.74)
[2022-11-02 12:41] LABS: KETONES,BLOOD SMALL-20 mg/dL
[2022-11-02 12:43] LABS: ESTIMATED GFR 38 mL/min (>=60); ETHANOL BLOOD MEDICAL < 3 mg/dL (0); GLUCOSE RANDOM 520 mg/dL (70-99)
[2022-11-02 13:02] LABS: O2 DELIVERY DEVICE ROOM AIR
[~2022-11-02 13:09] MED LIST changes: -Dextrose 5%-0.45% NaCl 1,000 ML IV SCH; +Glucagon,Human Recombinant 1 MG Vial IM PRN; +Insulin Regular, Human 100 Units/ML 3 ML Vial IV ONE; +Sodium Bicarbonate 8.4% 50 MEQ/50 ML Syringe IVPUSH ONE; +Sodium Chloride 0.9% 1,000 ML IV ONE; -Sodium Chloride 0.9% 10 ML Syringe FLUSH PRN; -Sodium Chloride 0.9% 10 ML Syringe FLUSH SCH
[2022-11-02 13:11] LABS: BASE EXCESS VENOUS -13.4 mmol/l ((-2)-(+3)); BICARBONATE,VENOUS 12 mmol/l (19-25); O2 SATURATION VENOUS 47.6 % (60-80); PCO2 VENOUS 26 mmHg (41-51); PH,VENOUS 7.28 (7.31-7.41); PO2 VENOUS 30 mmHg (35-42)
[2022-11-02] MEDS ORDERED: Acetaminophen 325 MG Tab PO PRN (13:21)
[2022-11-02] MEDS ORDERED: Polyethylene Glycol 3350 Powder 17 GM Packet PO PRN (13:24)
[2022-11-02] MEDS ORDERED: Magnesium Hydroxide 400 MG/5 ML Susp 30 ML Cup PO PRN (13:24)
[2022-11-02] MEDS ORDERED: Ondansetron 4 MG/2 ML SDV IVPUSH PRN (13:24)
[2022-11-02] MEDS ORDERED: Albuterol/Ipratropium 3.0-0.5 MG/3 ML Neb Soln NEB PRN (13:24)
[2022-11-02] MEDS ORDERED: Lactated Ringers 1,000 ML IV SCH ×2 (13:30)
[2022-11-02] MEDS ORDERED: LORazepam 2 MG/ML SDV IVPUSH ONE (13:31)
[2022-11-02] MEDS ORDERED: Insulin Glarg,Human.Rec.Analog 100 Unit/ML SUBCUT ONE ×2 (13:37→19:01)
[2022-11-02] MEDS ORDERED: Insulin Regular in 0.9 % NACL 100 ML ONE (14:16)
[2022-11-02 14:50] LABS: APPEARANCE,URINE CLEAR (CLEAR); BILIRUBIN,URINE SMALL (NEGATIVE); COLOR,URINE YELLOW (YELLOW); GLUCOSE,URINE 500 (NEGATIVE); KETONES,URINE >=160 (NEGATIVE); LEUKOCYTE ESTERASE,URINE NEGATIVE (NEGATIVE); NITRITE,URINE NEGATIVE (NEGATIVE); OCCULT BLOOD,URINE TRACE-INTACT (NEGATIVE); PROTEIN,URINE 30 (NEGATIVE); UROBILINOGEN,URINE 0.2 mg/dL (0.2-1.0)
[2022-11-02 15:07] LABS: AMPHETAMINES,URINE NEGATIVE (NEGATIVE); BARBITURATES,URINE POSITIVE (NEGATIVE); BENZODIAZEPINE,URINE NEGATIVE (NEGATIVE); MDMA (ECSTASY), URINE NEGATIVE (NEGATIVE); METHADONE,URINE NEGATIVE (NEGATIVE); METHAMPHETAMINES,URINE NEGATIVE (NEGATIVE); OPIATES,URINE NEGATIVE (NEGATIVE); OXYCODONE,URINE NEGATIVE (NEGATIVE); PHENCYCLIDINE,URINE NEGATIVE (NEGATIVE); TCA,URINE NEGATIVE (NEGATIVE)
[2022-11-02 15:14] LABS: BACTERIA,URINE FEW /HPF (0-FEW/HPF); EPITHELIAL CELLS,URINE MODERATE /HPF (NOT SEEN); RBC,URINE 0-5 /HPF (0-5); WBC,URINE 0-5 /HPF (0-5/HPF)
[2022-11-02 15:15] LABS: FINE GRANULAR CASTS,URINE FEW /LPF (NOT SEEN); HYALINE CASTS,URINE FEW
[2022-11-02 15:29] LABS: APPEARANCE,URINE CLEAR (CLEAR); COLOR,URINE YELLOW (YELLOW); GLUCOSE,URINE 500 (NEGATIVE); KETONES,URINE >=160 (NEGATIVE); PROTEIN,URINE 30 (NEGATIVE)
[2022-11-02 15:31] LABS: BILIRUBIN,URINE SMALL (NEGATIVE); LEUKOCYTE ESTERASE,URINE NEGATIVE (NEGATIVE); NITRITE,URINE NEGATIVE (NEGATIVE); OCCULT BLOOD,URINE TRACE-INTACT (NEGATIVE); RBC,URINE 0-5 /HPF (0-5); UROBILINOGEN,URINE 0.2 mg/dL (0.2-1.0)
[2022-11-02 15:32] LABS: WBC,URINE 0-5 /HPF (0-5/HPF)
[2022-11-02] MEDS: LORazepam 2 MG/ML SDV IVPUSH PRN ×3 (15:38→23:57)
[2022-11-02] MEDS: 50% Dextrose in Water 50 ML Syringe IVPUSH PRN ×2 (15:57→21:59)
[2022-11-02] MEDS ORDERED: LORazepam 0.5 MG Tab PO PRN (16:46)
[2022-11-02] MEDS ORDERED: Loperamide 2 MG Cap PO PRN (16:48)
[2022-11-02] MEDS: Dextrose 5% in Water 1,000 ML IV SCH ×2 (16:52→22:32)
[2022-11-02 17:20] LABS: ANION GAP 20.2 mEq/L (7-13); CREATININE 1.43 mg/dL (0.70-1.30); EST CRCL DRUG DOSING (CG) 50.4 mL/min; MAGNESIUM 1.8 mg/dL (1.8-2.4); PHOSPHORUS 2.2 mg/dL (2.6-4.7); POTASSIUM,K 4.2 mmol/L (3.5-5.1)
[2022-11-02] MEDS ORDERED: Phosphorus #1 250 MG Tab PO ONE (17:23)
[2022-11-02] MEDS: LORazepam 2 MG/ML SDV IV PRN (17:39)
[2022-11-02] MEDS ORDERED: Glucagon,Human Recombinant 1 MG Vial IM PRN (19:01)
[2022-11-02] MEDS ORDERED: 50% Dextrose in Water 50 ML Syringe IVPUSH PRN (19:01)
[2022-11-02 20:40] LABS: ANION GAP 13.6 mEq/L (7-13); CALCIUM 8.8 mg/dL (8.5-10.1); CREATININE 1.15 mg/dL (0.70-1.30); EST CRCL DRUG DOSING (CG) 62.67 mL/min; POTASSIUM,K 3.6 mmol/L (3.5-5.1)
[2022-11-02] MEDS ORDERED: Potassium Chloride 20 MEQ in Premix Bag 1 BAG IV ONE (21:09)
[2022-11-02] MEDS: Famotidine 20 MG/2 ML SDV IVPUSH SCH (21:13)
[2022-11-02] MEDS: Fluticasone NASAL Spray 16 GM Bottle NASBOTH SCH (21:17)
[2022-11-02] MEDS: Carbidopa/Levodopa 25-250 MG Tab PO SCH (21:17)
[2022-11-02] MEDS: Magnesium Oxide 400 MG Tab PO SCH (21:17)
[2022-11-02] MEDS: HYDROmorphone 0.5 MG/0.5 ML Syringe IVPUSH PRN (21:35)
[2022-11-02 23:22] LABS: ANION GAP 10.8 mEq/L (7-13); CALCIUM 8.9 mg/dL (8.5-10.1); CREATININE 1.07 mg/dL (0.70-1.30); EST CRCL DRUG DOSING (CG) 67.36 mL/min; POTASSIUM,K 3.8 mmol/L (3.5-5.1)
[2022-11-02] MEDS ORDERED: Insulin Lispro 100 Units/ML 3 ML Vial SUBCUT PRN (23:33)
[2022-11-03] MEDS: HYDROmorphone 0.5 MG/0.5 ML Syringe IVPUSH PRN ×6 (02:26→22:35)
[2022-11-03 04:19] LABS: BASOPHILS PERCENT AUTO 0.5 % (0.0-1.0); EOSINOPHILS PERCENT AUTO 0.4 % (1.0-3.0); HEMATOCRIT 41.8 % (40.0-54.0); MEAN CORPUSCULAR HEMOGLOBIN 31.3 pg (27.0-34.0); MEAN CORPUSCULAR HGB CONC 33.5 g/dL (33.0-35.0); MEAN CORPUSCULAR VOLUME 93.3 fL (80-100); MONOCYTES PERCENT AUTO 12.8 % (2-8); NEUTROPHILS PERCENT AUTO 59.3 % (42.2-75.2); PLATELET COUNT,PLT 276 10^3/uL (150-450); RED BLOOD CELL COUNT 4.48 10^6/uL (4.6-6.2); WHITE BLOOD CELL COUNT,WBC 14.8 10^3/uL (5.0-10.0)
[2022-11-03] MEDS: LORazepam 2 MG/ML SDV IVPUSH PRN ×4 (04:21→20:40)
[2022-11-03 04:33] LABS: ANION GAP 9.6 mEq/L (7-13); CALCIUM 8.8 mg/dL (8.5-10.1); CREATININE 0.98 mg/dL (0.70-1.30); EST CRCL DRUG DOSING (CG) 73.55 mL/min; POTASSIUM,K 3.6 mmol/L (3.5-5.1)
[2022-11-03 04:37] LABS: MAGNESIUM 1.7 mg/dL (1.8-2.4); PHOSPHORUS 3.1 mg/dL (2.6-4.7)
[2022-11-03] MEDS: LORazepam 2 MG/ML SDV IV PRN ×4 (07:18→23:34)
[2022-11-03] MEDS ORDERED: Magnesium Sulfate/Water 2 GM in Premix Bag 1 BAG IV ONE (08:01)
[2022-11-03] MEDS: Aspirin 81 MG Tab.EC PO SCH (10:07)
[2022-11-03] MEDS: atorvaSTATin 10 MG Tab PO SCH (10:07)
[2022-11-03] MEDS: Multivitamin Tab PO SCH (10:07)
[2022-11-03] MEDS: Venlafaxine 150 MG Cap.ER PO SCH (10:08)
[2022-11-03] MEDS: Thiamine 100 MG Tab PO SCH (10:08)
[2022-11-03] MEDS: Fluticasone NASAL Spray 16 GM Bottle NASBOTH SCH ×2 (10:08→21:26)
[2022-11-03] MEDS: Carbidopa/Levodopa 25-250 MG Tab PO SCH ×3 (10:08→21:25)
[2022-11-03] MEDS: Magnesium Oxide 400 MG Tab PO SCH ×2 (10:08→21:26)
[2022-11-03] MEDS: Folic Acid 1 MG Tab PO SCH (10:08)
[2022-11-03] MEDS: Famotidine 20 MG/2 ML SDV IVPUSH SCH ×2 (10:08→21:26)
[2022-11-03] MEDS: Insulin Glarg,Human.Rec.Analog 100 Unit/ML SUBCUT SCH ×2 (11:10→21:27)
[2022-11-03] MEDS: Insulin Lispro 100 Units/ML 3 ML Vial SUBCUT SCH ×2 (12:14→17:02)
[2022-11-03] MEDS ORDERED: MVI, Adult with Vitamin K 10 ML, Folic Acid 1 MG, Thiamine 100 MG in Lactated Ringers 1... IV ONE ×4 (15:54)
[2022-11-03] MEDS: Pregabalin 50 MG Cap PO SCH (17:23)
[2022-11-03] MEDS: QUEtiapine 100 MG Tab PO SCH (21:25)
[2022-11-03] MEDS: Mirtazapine 15 MG Tab PO SCH (21:25)
[2022-11-03] MEDS: Montelukast 10 MG Tab PO SCH (21:26)
[2022-11-04] MEDS: HYDROmorphone 0.5 MG/0.5 ML Syringe IVPUSH PRN ×7 (01:35→22:37)
[2022-11-04] MEDS: LORazepam 2 MG/ML SDV IV PRN ×5 (03:08→20:45)
[2022-11-04 07:04] LABS: ANION GAP 10.6 mEq/L (7-13); CALCIUM 8.6 mg/dL (8.5-10.1); CREATININE 0.76 mg/dL (0.70-1.30); EST CRCL DRUG DOSING (CG) 94.84 mL/min; POTASSIUM,K 3.6 mmol/L (3.5-5.1)
[2022-11-04 07:34] LABS: BASOPHILS PERCENT AUTO 0.9 % (0.0-1.0); EOSINOPHILS PERCENT AUTO 1.7 % (1.0-3.0); HEMATOCRIT 41.6 % (40.0-54.0); HEMOGLOBIN 13.7 g/dL (14.0-18.0); LYMPHOCYTES PERCENT AUTO 39.9 % (20.5-50.1); MEAN CORPUSCULAR HEMOGLOBIN 30.9 pg (27.0-34.0); MEAN CORPUSCULAR HGB CONC 32.9 g/dL (33.0-35.0); MEAN CORPUSCULAR VOLUME 93.7 fL (80-100); MONOCYTES PERCENT AUTO 14.3 % (2-8); NEUTROPHILS PERCENT AUTO 43.2 % (42.2-75.2); PLATELET COUNT,PLT 223 10^3/uL (150-450); RED BLOOD CELL COUNT 4.44 10^6/uL (4.6-6.2); WHITE BLOOD CELL COUNT,WBC 7.1 10^3/uL (5.0-10.0)
[2022-11-04] MEDS: Insulin Lispro 100 Units/ML 3 ML Vial SUBCUT SCH ×3 (08:46→17:17)
[2022-11-04] MEDS: Famotidine 20 MG/2 ML SDV IVPUSH SCH ×2 (08:47→20:27)
[2022-11-04] MEDS ORDERED: Magnesium Sulfate/Water 4 GM in Premix Bag 1 BAG IV ONE (09:00)
[2022-11-04] MEDS: QUEtiapine 100 MG Tab PO SCH ×2 (09:05→20:18)
[2022-11-04] MEDS: Carbidopa/Levodopa 25-250 MG Tab PO SCH ×3 (09:05→20:18)
[2022-11-04] MEDS: Magnesium Oxide 400 MG Tab PO SCH ×2 (09:05→20:28)
[2022-11-04] MEDS: Multivitamin Tab PO SCH (09:05)
[2022-11-04] MEDS: Thiamine 100 MG Tab PO SCH (09:05)
[2022-11-04] MEDS: atorvaSTATin 10 MG Tab PO SCH (09:05)
[2022-11-04] MEDS: Venlafaxine 150 MG Cap.ER PO SCH (09:06)
[2022-11-04] MEDS: Insulin Glarg,Human.Rec.Analog 100 Unit/ML SUBCUT SCH ×2 (09:06→20:28)
[2022-11-04] MEDS: Aspirin 81 MG Tab.EC PO SCH (09:06)
[2022-11-04] MEDS: Fluticasone NASAL Spray 16 GM Bottle NASBOTH SCH ×2 (09:06→20:27)
[2022-11-04] MEDS: Pregabalin 50 MG Cap PO SCH ×3 (09:06→17:29)
[2022-11-04] MEDS: Folic Acid 1 MG Tab PO SCH (09:06)
[2022-11-04] MEDS: LORazepam 2 MG/ML SDV IVPUSH PRN ×2 (09:25→14:32)
[2022-11-04] MEDS: Dextrose 5%-0.9% NaCl 1,000 ML IV SCH (10:22)
[2022-11-04] MEDS: cloNIDine 0.1 MG Tab PO PRN (12:22)
[2022-11-04] MEDS: Mirtazapine 15 MG Tab PO SCH (20:18)
[2022-11-04] MEDS: Montelukast 10 MG Tab PO SCH (20:28)
[2022-11-05] MEDS: HYDROmorphone 0.5 MG/0.5 ML Syringe IVPUSH PRN ×2 (03:45→06:41)
[2022-11-05] MEDS: LORazepam 2 MG/ML SDV IV PRN ×2 (03:45→09:38)
[2022-11-05 06:43] LABS: LYMPHOCYTES PERCENT AUTO 40.1 % (20.5-50.1); MEAN CORPUSCULAR HEMOGLOBIN 30.8 pg (27.0-34.0); MEAN CORPUSCULAR HGB CONC 32.6 g/dL (33.0-35.0); MEAN CORPUSCULAR VOLUME 94.5 fL (80-100); MONOCYTES PERCENT AUTO 10.8 % (2-8); NEUTROPHILS PERCENT AUTO 45.1 % (42.2-75.2); PLATELET COUNT,PLT 218 10^3/uL (150-450); RED BLOOD CELL COUNT 4.55 10^6/uL (4.6-6.2); WHITE BLOOD CELL COUNT,WBC 6.7 10^3/uL (5.0-10.0)
[2022-11-05 06:59] LABS: ANION GAP 11.7 mEq/L (7-13); CALCIUM 8.5 mg/dL (8.5-10.1); CREATININE 0.71 mg/dL (0.70-1.30); EST CRCL DRUG DOSING (CG) 101.51 mL/min; MAGNESIUM 1.7 mg/dL (1.8-2.4); POTASSIUM,K 3.7 mmol/L (3.5-5.1)
[2022-11-05] MEDS ORDERED: Magnesium Sulfate/Water 4 GM in Premix Bag 1 BAG IV ONE (07:16)
[2022-11-05] MEDS: Folic Acid 1 MG Tab PO SCH (09:12)
[2022-11-05] MEDS: Pregabalin 50 MG Cap PO SCH ×3 (09:12→17:10)
[2022-11-05] MEDS: Aspirin 81 MG Tab.EC PO SCH (09:12)
[2022-11-05] MEDS: Venlafaxine 150 MG Cap.ER PO SCH (09:12)
[2022-11-05] MEDS: Fluticasone NASAL Spray 16 GM Bottle NASBOTH SCH ×2 (09:12→20:47)
[2022-11-05] MEDS: Magnesium Oxide 400 MG Tab PO SCH ×2 (09:13→20:15)
[2022-11-05] MEDS: Thiamine 100 MG Tab PO SCH (09:13)
[2022-11-05] MEDS: Multivitamin Tab PO SCH (09:13)
[2022-11-05] MEDS: atorvaSTATin 10 MG Tab PO SCH (09:13)
[2022-11-05] MEDS: QUEtiapine 100 MG Tab PO SCH ×2 (09:13→20:16)
[2022-11-05] MEDS: Haloperidol Lactate 5 MG/ML SDV IVPUSH PRN (09:51)
[2022-11-05] MEDS: Famotidine 20 MG/2 ML SDV IVPUSH SCH ×2 (09:51→20:16)
[2022-11-05] MEDS: Carbidopa/Levodopa 25-250 MG Tab PO SCH ×3 (09:52→20:16)
[2022-11-05] MEDS: Insulin Lispro 100 Units/ML 3 ML Vial SUBCUT SCH ×3 (09:54→17:09)
[2022-11-05] MEDS: Insulin Glarg,Human.Rec.Analog 100 Unit/ML SUBCUT SCH ×2 (10:18→20:45)
[2022-11-05] MEDS: Dextrose 5%-0.9% NaCl 1,000 ML IV SCH (12:51)
[2022-11-05] MEDS: Montelukast 10 MG Tab PO SCH (20:15)
[2022-11-05] MEDS: Mirtazapine 15 MG Tab PO SCH (20:15)
[2022-11-05] MEDS ORDERED: Magnesium Sulfate/Water 2 GM in Premix Bag 1 BAG IV SCH (21:00)
[2022-11-06 05:25] LABS: BASOPHILS PERCENT AUTO 0.8 % (0.0-1.0); EOSINOPHILS PERCENT AUTO 2.3 % (1.0-3.0); HEMOGLOBIN 14.7 g/dL (14.0-18.0); LYMPHOCYTES PERCENT AUTO 42.1 % (20.5-50.1); MEAN CORPUSCULAR HEMOGLOBIN 30.5 pg (27.0-34.0); MEAN CORPUSCULAR HGB CONC 33.4 g/dL (33.0-35.0); MEAN CORPUSCULAR VOLUME 91.3 fL (80-100); MONOCYTES PERCENT AUTO 14.4 % (2-8); NEUTROPHILS PERCENT AUTO 40.4 % (42.2-75.2); PLATELET COUNT,PLT 234 10^3/uL (150-450); RED BLOOD CELL COUNT 4.82 10^6/uL (4.6-6.2); WHITE BLOOD CELL COUNT,WBC 6.2 10^3/uL (5.0-10.0)
[2022-11-06 05:39] LABS: CALCIUM 8.5 mg/dL (8.5-10.1); CREATININE 0.73 mg/dL (0.70-1.30); EST CRCL DRUG DOSING (CG) 98.73 mL/min
[2022-11-06] MEDS ORDERED: Potassium Chloride 10 MEQ Tab.ER PO ONE (07:22)
[2022-11-06] MEDS: Famotidine 20 MG/2 ML SDV IVPUSH SCH ×2 (08:38→22:11)
[2022-11-06] MEDS: cloNIDine 0.1 MG Tab PO PRN (08:40)
[2022-11-06] MEDS: Carbidopa/Levodopa 25-250 MG Tab PO SCH ×3 (08:40→22:08)
[2022-11-06] MEDS: Aspirin 81 MG Tab.EC PO SCH (08:40)
[2022-11-06] MEDS: Pregabalin 50 MG Cap PO SCH ×3 (08:41→17:14)
[2022-11-06] MEDS: atorvaSTATin 10 MG Tab PO SCH (08:41)
[2022-11-06] MEDS: Folic Acid 1 MG Tab PO SCH (08:41)
[2022-11-06] MEDS: Magnesium Oxide 400 MG Tab PO SCH ×2 (08:41→22:08)
[2022-11-06] MEDS: Thiamine 100 MG Tab PO SCH (08:42)
[2022-11-06] MEDS: Multivitamin Tab PO SCH (08:42)
[2022-11-06] MEDS: QUEtiapine 100 MG Tab PO SCH ×2 (08:42→22:10)
[2022-11-06] MEDS: Venlafaxine 150 MG Cap.ER PO SCH (08:43)
[2022-11-06] MEDS: Fluticasone NASAL Spray 16 GM Bottle NASBOTH SCH ×2 (08:43→22:12)
[2022-11-06] MEDS: Insulin Lispro 100 Units/ML 3 ML Vial SUBCUT SCH ×3 (08:48→17:13)
[2022-11-06] MEDS: Insulin Glarg,Human.Rec.Analog 100 Unit/ML SUBCUT SCH ×2 (08:52→22:15)
[2022-11-06] MEDS: hydrALAZINE 20 MG/ML SDV IVPUSH PRN (09:26)
[2022-11-06] MEDS: Dextrose 5%-0.9% NaCl 1,000 ML IV SCH (10:12)
[2022-11-06] MEDS: Acetaminophen/HYDROcodone 325-5 MG Tab PO PRN ×2 (13:15→21:00)
[2022-11-06] MEDS: LORazepam 2 MG/ML SDV IV PRN (14:58)
[2022-11-06] MEDS: Haloperidol Lactate 5 MG/ML SDV IVPUSH PRN ×2 (16:43→22:11)
[2022-11-06] MEDS: Mirtazapine 15 MG Tab PO SCH (22:08)
[2022-11-06] MEDS: Montelukast 10 MG Tab PO SCH (22:10)
[2022-11-07 06:30] LABS: ANION GAP 16.2 mEq/L (7-13); CALCIUM 8.9 mg/dL (8.5-10.1); CREATININE 0.82 mg/dL (0.70-1.30); EST CRCL DRUG DOSING (CG) 87.9 mL/min; POTASSIUM,K 3.2 mmol/L (3.5-5.1)
[2022-11-07] MEDS ORDERED: Potassium Chloride 10 MEQ Tab.ER PO ONE (07:46)
[2022-11-07] MEDS ORDERED: Losartan 50 MG Tab PO SCH (09:00)
[2022-11-07] MEDS: Insulin Lispro 100 Units/ML 3 ML Vial SUBCUT SCH ×3 (09:17→17:24)
[2022-11-07] MEDS: Insulin Glarg,Human.Rec.Analog 100 Unit/ML SUBCUT SCH ×2 (09:18→20:10)
[2022-11-07] MEDS: Famotidine 20 MG/2 ML SDV IVPUSH SCH ×2 (09:18→20:09)
[2022-11-07] MEDS: LORazepam 2 MG/ML SDV IV PRN ×2 (09:35→16:45)
[2022-11-07] MEDS: Pregabalin 50 MG Cap PO SCH ×3 (09:37→17:28)
[2022-11-07] MEDS: QUEtiapine 100 MG Tab PO SCH ×2 (09:37→20:08)
[2022-11-07] MEDS: Venlafaxine 150 MG Cap.ER PO SCH (09:37)
[2022-11-07] MEDS: Magnesium Oxide 400 MG Tab PO SCH ×2 (09:37→20:08)
[2022-11-07] MEDS: Folic Acid 1 MG Tab PO SCH (09:37)
[2022-11-07] MEDS: Thiamine 100 MG Tab PO SCH (09:38)
[2022-11-07] MEDS: atorvaSTATin 10 MG Tab PO SCH (09:38)
[2022-11-07] MEDS: Multivitamin Tab PO SCH (09:38)
[2022-11-07] MEDS: Carbidopa/Levodopa 25-250 MG Tab PO SCH ×3 (09:38→20:09)
[2022-11-07] MEDS: Aspirin 81 MG Tab.EC PO SCH (09:38)
[2022-11-07] MEDS: Betamethasone Dipropionate/Clotrimazole 0.05-1% Crm 15 GM Tube TOP SCH ×2 (09:39→20:11)
[2022-11-07] MEDS: Fluticasone NASAL Spray 16 GM Bottle NASBOTH SCH ×2 (09:39→20:21)
[2022-11-07] MEDS ORDERED: Potassium Chloride 10% 20 MEQ/15 ML Soln 15 ML UD Cup PO ONE (10:00)
[2022-11-07] MEDS: Dextrose 5%-0.9% NaCl 1,000 ML IV SCH (11:11)
[2022-11-07] MEDS: Acetaminophen/HYDROcodone 325-5 MG Tab PO PRN (13:50)
[2022-11-07] MEDS: Haloperidol Lactate 5 MG/ML SDV IVPUSH PRN (13:51)
[2022-11-07] MEDS: Mirtazapine 15 MG Tab PO SCH (20:08)
[2022-11-07] MEDS: Montelukast 10 MG Tab PO SCH (20:08)
[2022-11-08 06:23] LABS: BASOPHILS PERCENT AUTO 0.7 % (0.0-1.0); EOSINOPHILS PERCENT AUTO 5.5 % (1.0-3.0); HEMATOCRIT 44.1 % (40.0-54.0); HEMOGLOBIN 14.6 g/dL (14.0-18.0); LYMPHOCYTES PERCENT AUTO 41.8 % (20.5-50.1); MEAN CORPUSCULAR HEMOGLOBIN 30.5 pg (27.0-34.0); MEAN CORPUSCULAR HGB CONC 33.1 g/dL (33.0-35.0); MEAN CORPUSCULAR VOLUME 92.3 fL (80-100); MONOCYTES PERCENT AUTO 15.4 % (2-8); NEUTROPHILS PERCENT AUTO 36.6 % (42.2-75.2); PLATELET COUNT,PLT 236 10^3/uL (150-450); RED BLOOD CELL COUNT 4.78 10^6/uL (4.6-6.2)
[2022-11-08 06:39] LABS: ANION GAP 13.4 mEq/L (7-13); CALCIUM 8.7 mg/dL (8.5-10.1); CREATININE 0.77 mg/dL (0.70-1.30); EST CRCL DRUG DOSING (CG) 93.6 mL/min; MAGNESIUM 1.4 mg/dL (1.8-2.4); POTASSIUM,K 3.4 mmol/L (3.5-5.1)
[2022-11-08] MEDS ORDERED: Magnesium Sulfate/Water 2 GM in Premix Bag 1 BAG IV ONE (08:06)
[2022-11-08] MEDS: Thiamine 100 MG Tab PO SCH (09:42)
[2022-11-08] MEDS: Pregabalin 50 MG Cap PO SCH ×3 (09:42→17:15)
[2022-11-08] MEDS: Multivitamin Tab PO SCH (09:43)
[2022-11-08] MEDS: QUEtiapine 100 MG Tab PO SCH ×2 (09:43→22:13)
[2022-11-08] MEDS: Venlafaxine 150 MG Cap.ER PO SCH (09:43)
[2022-11-08] MEDS: Magnesium Oxide 400 MG Tab PO SCH ×2 (09:43→22:15)
[2022-11-08] MEDS: Losartan 50 MG Tab PO SCH (09:44)
[2022-11-08] MEDS: Aspirin 81 MG Tab.EC PO SCH (09:45)
[2022-11-08] MEDS: atorvaSTATin 10 MG Tab PO SCH (09:45)
[2022-11-08] MEDS: Famotidine 20 MG/2 ML SDV IVPUSH SCH ×2 (09:46→22:15)
[2022-11-08] MEDS: Folic Acid 1 MG Tab PO SCH (09:46)
[2022-11-08] MEDS: Fluticasone NASAL Spray 16 GM Bottle NASBOTH SCH ×2 (09:46→22:10)
[2022-11-08] MEDS: Betamethasone Dipropionate/Clotrimazole 0.05-1% Crm 15 GM Tube TOP SCH ×2 (09:46→22:26)
[2022-11-08] MEDS: Carbidopa/Levodopa 25-250 MG Tab PO SCH ×3 (09:46→22:15)
[2022-11-08] MEDS: Insulin Lispro 100 Units/ML 3 ML Vial SUBCUT SCH ×3 (09:47→17:15)
[2022-11-08] MEDS: Insulin Glarg,Human.Rec.Analog 100 Unit/ML SUBCUT SCH ×2 (09:47→22:23)
[2022-11-08] MEDS: Potassium Chloride 10 MEQ Tab.ER PO SCH ×2 (09:50→17:15)
[2022-11-08] MEDS ORDERED: Sodium Chloride 0.9% 20 ML SDV IV ONE (21:36)
[2022-11-08] MEDS: Mirtazapine 15 MG Tab PO SCH (22:12)
[2022-11-08] MEDS: Acetaminophen/HYDROcodone 325-5 MG Tab PO PRN (22:13)
[2022-11-08] MEDS: Montelukast 10 MG Tab PO SCH (22:14)
[2022-11-08] MEDS: hydrALAZINE 20 MG/ML SDV IVPUSH PRN (22:50)
[2022-11-09 07:05] LABS: ALBUMIN 3.1 g/dL (3.4-5.0); BILIRUBIN TOTAL 0.7 mg/dL (0.2-1.0); CREATININE 1.12 mg/dL (0.70-1.30); EST CRCL DRUG DOSING (CG) 64.35 mL/min; MAGNESIUM 1.8 mg/dL (1.8-2.4); PROTEIN TOTAL,TP 6.4 g/dL (6.4-8.2)
[2022-11-09 07:06] LABS: A/G RATIO 0.94
[2022-11-09] MEDS: Thiamine 100 MG Tab PO SCH (08:16)
[2022-11-09] MEDS: Potassium Chloride 10 MEQ Tab.ER PO SCH ×2 (08:18→17:01)
[2022-11-09] MEDS: Losartan 50 MG Tab PO SCH (08:19)
[2022-11-09] MEDS: Pregabalin 50 MG Cap PO SCH ×3 (08:19→17:02)
[2022-11-09] MEDS: Multivitamin Tab PO SCH (08:20)
[2022-11-09] MEDS: Aspirin 81 MG Tab.EC PO SCH (08:20)
[2022-11-09] MEDS: Magnesium Oxide 400 MG Tab PO SCH ×2 (08:20→20:53)
[2022-11-09] MEDS: Venlafaxine 150 MG Cap.ER PO SCH (08:20)
[2022-11-09] MEDS: Folic Acid 1 MG Tab PO SCH (08:21)
[2022-11-09] MEDS: atorvaSTATin 10 MG Tab PO SCH (08:21)
[2022-11-09] MEDS: QUEtiapine 100 MG Tab PO SCH ×2 (08:21→20:36)
[2022-11-09] MEDS: Carbidopa/Levodopa 25-250 MG Tab PO SCH ×3 (08:21→20:37)
[2022-11-09] MEDS: Famotidine 20 MG/2 ML SDV IVPUSH SCH ×2 (08:22→20:49)
[2022-11-09] MEDS: Fluticasone NASAL Spray 16 GM Bottle NASBOTH SCH ×2 (08:31→20:45)
[2022-11-09] MEDS: Betamethasone Dipropionate/Clotrimazole 0.05-1% Crm 15 GM Tube TOP SCH ×2 (08:32→20:50)
[2022-11-09] MEDS: Insulin Glarg,Human.Rec.Analog 100 Unit/ML SUBCUT SCH ×2 (08:34→20:48)
[2022-11-09] MEDS: Insulin Lispro 100 Units/ML 3 ML Vial SUBCUT SCH ×3 (08:35→17:02)
[2022-11-09] MEDS: Haloperidol Lactate 5 MG/ML SDV IVPUSH PRN (12:02)
[2022-11-09] MEDS ORDERED: Ziprasidone Mesylate 20 MG Vial IM ONE (15:17)
[2022-11-09] MEDS ORDERED: Ziprasidone Mesylate 20 MG Vial IM PRN (19:15)
[2022-11-09] MEDS: Mirtazapine 15 MG Tab PO SCH (20:37)
[2022-11-09] MEDS: Montelukast 10 MG Tab PO SCH (20:37)
[2022-11-09] MEDS: HYDROmorphone 0.5 MG/0.5 ML Syringe IVPUSH PRN (22:52)
[2022-11-10] MEDS: HYDROmorphone 0.5 MG/0.5 ML Syringe IVPUSH PRN ×2 (02:18→23:16)
[2022-11-10] MEDS: QUEtiapine 100 MG Tab PO SCH ×2 (08:19→20:24)
[2022-11-10] MEDS: Potassium Chloride 10 MEQ Tab.ER PO SCH (08:19)
[2022-11-10] MEDS: Pregabalin 50 MG Cap PO SCH ×3 (08:20→17:02)
[2022-11-10] MEDS: Venlafaxine 150 MG Cap.ER PO SCH (08:20)
[2022-11-10] MEDS: Thiamine 100 MG Tab PO SCH (08:20)
[2022-11-10] MEDS: Carbidopa/Levodopa 25-250 MG Tab PO SCH ×3 (08:20→20:23)
[2022-11-10] MEDS: Aspirin 81 MG Tab.EC PO SCH (08:20)
[2022-11-10] MEDS: atorvaSTATin 10 MG Tab PO SCH (08:20)
[2022-11-10] MEDS: Multivitamin Tab PO SCH (08:21)
[2022-11-10] MEDS: Losartan 50 MG Tab PO SCH (08:21)
[2022-11-10] MEDS: Folic Acid 1 MG Tab PO SCH (08:21)
[2022-11-10] MEDS: Magnesium Oxide 400 MG Tab PO SCH ×2 (08:22→20:24)
[2022-11-10] MEDS: Insulin Lispro 100 Units/ML 3 ML Vial SUBCUT SCH ×3 (08:26→17:03)
[2022-11-10] MEDS: Fluticasone NASAL Spray 16 GM Bottle NASBOTH SCH ×2 (08:38→20:21)
[2022-11-10] MEDS: Insulin Glarg,Human.Rec.Analog 100 Unit/ML SUBCUT SCH ×2 (08:39→20:21)
[2022-11-10] MEDS: Betamethasone Dipropionate/Clotrimazole 0.05-1% Crm 15 GM Tube TOP SCH ×2 (08:48→20:25)
[2022-11-10] MEDS: Famotidine 20 MG/2 ML SDV IVPUSH SCH (10:48)
[2022-11-10] MEDS: Mirtazapine 15 MG Tab PO SCH (20:23)
[2022-11-10] MEDS: Acetaminophen/HYDROcodone 325-5 MG Tab PO PRN (20:23)
[2022-11-10] MEDS: Famotidine 20 MG Tab PO SCH (20:24)
[2022-11-10] MEDS: Montelukast 10 MG Tab PO SCH (20:24)
[2022-11-10] MEDS: Haloperidol Lactate 5 MG/ML SDV IVPUSH PRN (23:51)
[2022-11-11] MEDS: HYDROmorphone 0.5 MG/0.5 ML Syringe IVPUSH PRN (03:01)
[2022-11-11 06:31] LABS: BASOPHILS PERCENT AUTO 0.4 % (0.0-1.0); EOSINOPHILS PERCENT AUTO 3.7 % (1.0-3.0); HEMATOCRIT 48.9 % (40.0-54.0); HEMOGLOBIN 15.9 g/dL (14.0-18.0); LYMPHOCYTES PERCENT AUTO 40.8 % (20.5-50.1); MEAN CORPUSCULAR HEMOGLOBIN 30.8 pg (27.0-34.0); MEAN CORPUSCULAR HGB CONC 32.5 g/dL (33.0-35.0); MEAN CORPUSCULAR VOLUME 94.6 fL (80-100); MONOCYTES PERCENT AUTO 16.3 % (2-8); NEUTROPHILS PERCENT AUTO 38.8 % (42.2-75.2); PLATELET COUNT,PLT 215 10^3/uL (150-450); RED BLOOD CELL COUNT 5.17 10^6/uL (4.6-6.2); WHITE BLOOD CELL COUNT,WBC 5.7 10^3/uL (5.0-10.0)
[2022-11-11 07:04] LABS: ALBUMIN 3.2 g/dL (3.4-5.0); ANION GAP 11.6 mEq/L (7-13); BILIRUBIN TOTAL 0.5 mg/dL (0.2-1.0); BUN/CREATININE RATIO 15.1 (No establ ref range); CALCIUM 9.2 mg/dL (8.5-10.1); CREATININE 0.73 mg/dL (0.70-1.30); EST CRCL DRUG DOSING (CG) 98.73 mL/min; POTASSIUM,K 4.6 mmol/L (3.5-5.1); PROTEIN TOTAL,TP 6.7 g/dL (6.4-8.2)
[2022-11-11 07:05] LABS: A/G RATIO 0.91
[2022-11-11] MEDS: Insulin Lispro 100 Units/ML 3 ML Vial SUBCUT SCH ×3 (07:56→16:55)
[2022-11-11] MEDS: Insulin Glarg,Human.Rec.Analog 100 Unit/ML SUBCUT SCH ×2 (08:01→21:05)
[2022-11-11] MEDS: Betamethasone Dipropionate/Clotrimazole 0.05-1% Crm 15 GM Tube TOP SCH ×2 (08:07→21:05)
[2022-11-11] MEDS: Venlafaxine 150 MG Cap.ER PO SCH (08:26)
[2022-11-11] MEDS: Pregabalin 50 MG Cap PO SCH ×3 (08:26→16:59)
[2022-11-11] MEDS: Folic Acid 1 MG Tab PO SCH (08:27)
[2022-11-11] MEDS: Famotidine 20 MG Tab PO SCH ×2 (08:27→21:05)
[2022-11-11] MEDS: Aspirin 81 MG Tab.EC PO SCH (08:27)
[2022-11-11] MEDS: atorvaSTATin 10 MG Tab PO SCH (08:27)
[2022-11-11] MEDS: QUEtiapine 100 MG Tab PO SCH ×2 (08:28→21:05)
[2022-11-11] MEDS: Thiamine 100 MG Tab PO SCH (08:28)
[2022-11-11] MEDS: Multivitamin Tab PO SCH (08:28)
[2022-11-11] MEDS: Carbidopa/Levodopa 25-250 MG Tab PO SCH ×3 (08:28→21:05)
[2022-11-11] MEDS: Magnesium Oxide 400 MG Tab PO SCH ×2 (08:29→21:05)
[2022-11-11] MEDS: Fluticasone NASAL Spray 16 GM Bottle NASBOTH SCH ×2 (08:32→21:04)
[2022-11-11] MEDS: Losartan 50 MG Tab PO SCH (10:09)
[2022-11-11] MEDS: Montelukast 10 MG Tab PO SCH (21:05)
[2022-11-11] MEDS: Mirtazapine 15 MG Tab PO SCH (21:05)
[2022-11-11] MEDS: Haloperidol Lactate 5 MG/ML SDV IVPUSH PRN (22:38)
[2022-11-12] MEDS: Insulin Lispro 100 Units/ML 3 ML Vial SUBCUT SCH ×3 (07:51→17:36)
[2022-11-12] MEDS: Pregabalin 50 MG Cap PO SCH ×3 (08:48→17:37)
[2022-11-12] MEDS: Thiamine 100 MG Tab PO SCH (08:49)
[2022-11-12] MEDS: Carbidopa/Levodopa 25-250 MG Tab PO SCH ×3 (08:49→21:35)
[2022-11-12] MEDS: Multivitamin Tab PO SCH (08:49)
[2022-11-12] MEDS: Famotidine 20 MG Tab PO SCH ×2 (08:51→21:34)
[2022-11-12] MEDS: Aspirin 81 MG Tab.EC PO SCH (08:51)
[2022-11-12] MEDS: Venlafaxine 150 MG Cap.ER PO SCH (08:52)
[2022-11-12] MEDS: atorvaSTATin 10 MG Tab PO SCH (08:52)
[2022-11-12] MEDS: QUEtiapine 100 MG Tab PO SCH ×2 (08:53→21:35)
[2022-11-12] MEDS: Folic Acid 1 MG Tab PO SCH (08:53)
[2022-11-12] MEDS: Magnesium Oxide 400 MG Tab PO SCH ×2 (08:57→21:46)
[2022-11-12] MEDS ORDERED: Losartan 50 MG Tab PO SCH (09:00)
[2022-11-12] MEDS: Fluticasone NASAL Spray 16 GM Bottle NASBOTH SCH ×2 (09:33→21:35)
[2022-11-12] MEDS: Betamethasone Dipropionate/Clotrimazole 0.05-1% Crm 15 GM Tube TOP SCH ×2 (09:34→21:35)
[2022-11-12] MEDS: Insulin Glarg,Human.Rec.Analog 100 Unit/ML SUBCUT SCH ×2 (09:35→21:40)
[2022-11-12] MEDS: Midodrine 2.5 MG Tab PO SCH ×2 (12:11→17:37)
[2022-11-12] MEDS: Montelukast 10 MG Tab PO SCH (21:34)
[2022-11-12] MEDS: Mirtazapine 15 MG Tab PO SCH (21:34)
[2022-11-13] MEDS: LORazepam 2 MG/ML SDV IV PRN (02:00)
[2022-11-13] MEDS: Haloperidol Lactate 5 MG/ML SDV IVPUSH PRN (02:54)
[2022-11-13] MEDS: Pregabalin 50 MG Cap PO SCH (08:24)
[2022-11-13] MEDS: Venlafaxine 150 MG Cap.ER PO SCH (08:26)
[2022-11-13] MEDS: Famotidine 20 MG Tab PO SCH (08:26)
[2022-11-13] MEDS: Midodrine 2.5 MG Tab PO SCH (08:27)
[2022-11-13] MEDS: Multivitamin Tab PO SCH (08:28)
[2022-11-13] MEDS: atorvaSTATin 10 MG Tab PO SCH (08:29)
[2022-11-13] MEDS: Thiamine 100 MG Tab PO SCH (08:30)
[2022-11-13] MEDS: QUEtiapine 100 MG Tab PO SCH (08:30)
[2022-11-13] MEDS: Aspirin 81 MG Tab.EC PO SCH (08:31)
[2022-11-13] MEDS: Folic Acid 1 MG Tab PO SCH (08:31)
[2022-11-13] MEDS: Carbidopa/Levodopa 25-250 MG Tab PO SCH (08:32)
[2022-11-13] MEDS: Fluticasone NASAL Spray 16 GM Bottle NASBOTH SCH (08:32)
[2022-11-13] MEDS: Magnesium Oxide 400 MG Tab PO SCH (08:32)
[2022-11-13] MEDS: Insulin Glarg,Human.Rec.Analog 100 Unit/ML SUBCUT SCH (08:33)
[2022-11-13] MEDS: Insulin Lispro 100 Units/ML 3 ML Vial SUBCUT SCH (08:36)
[2022-11-13] MEDS ORDERED: Losartan 50 MG Tab PO SCH ×2 (09:00)
== END 2022-11-13 10:41 | disposition swing bed (61) | DRG 896 ==
LOC: DL.ED 13:09 → DL.MS 13:15 → UNDOADMIN 13:15 → DL.MS 13:22 → UNDOADMIN 11-12 14:32
PROVIDERS: ADMIT Internal Medicine; ATTEND Internal Medicine
DX: F10.239 Alcohol dependence with withdrawal, unspecified (principal); E11.10 Type 2 diabetes mellitus with ketoacidosis without coma; G93.41 Metabolic encephalopathy; F05 Delirium due to known physiological condition; N17.9 Acute kidney failure, unspecified; I10 Essential (primary) hypertension; I95.1 Orthostatic hypotension; E83.42 Hypomagnesemia; E87.6 Hypokalemia; E78.5 Hyperlipidemia, unspecified; K21.9 Gastro-esophageal reflux disease without esophagitis; G20 Parkinson's disease; F02.80 Dementia in other diseases classified elsewhere, unspecified severity, without behavioral disturbance, psychotic disturbance, mood disturbance, and anxiety; E11.42 Type 2 diabetes mellitus with diabetic polyneuropathy; M19.90 Unspecified osteoarthritis, unspecified site; M10.9 Gout, unspecified; F31.9 Bipolar disorder, unspecified; F41.8 Other specified anxiety disorders; G47.00 Insomnia, unspecified; H54.7 Unspecified visual loss; G89.29 Other chronic pain; M54.9 Dorsalgia, unspecified; E87.5 Hyperkalemia; E86.0 Dehydration; L40.8 Other psoriasis; Z20.822 Contact with and (suspected) exposure to COVID-19; Z79.82 Long term (current) use of aspirin; Z98.890 Other specified postprocedural states; Z91.148 Patient's other noncompliance with medication regimen for other reason; Z79.4 Long term (current) use of insulin; Z79.899 Other long term (current) drug therapy
CPT/HCPCS: 36415; 70551; 71045; 80048; 80053; 80305-QW; 80307; 81001; 82009; 82140; 82150; 82803; 82947; 83605; 83690; 83735; 84100; 84443; 85025; 86140; 87040; 87804; 97161-GP; 97165-GO; 97530-GO; 97530-GP; 97535-GO; A9270-GY; J0360; J1170; J1630; J1815-GY; J2060; J3360; J3411; J3475; J3480; J3486; J3490; J7030; J7042; J7060; J7120; U0002

== ENCOUNTER 2022-11-12 11:34 | Inpatient (IN) | payer MEDICARE, MEDICAID ==
[2022-11-13] MEDS ORDERED: Glucagon,Human Recombinant 1 MG Vial IM PRN ×2 (10:35)
[2022-11-13] MEDS ORDERED: cloNIDine 0.1 MG Tab PO PRN (10:35)
[2022-11-13] MEDS ORDERED: 50% Dextrose in Water 50 ML Syringe IVPUSH PRN (10:35)
[2022-11-13] MEDS ORDERED: Ondansetron 4 MG/2 ML SDV IVPUSH PRN (10:35)
[2022-11-13] MEDS ORDERED: LORazepam 2 MG/ML SDV IV PRN (10:35)
[2022-11-13] MEDS ORDERED: LORazepam 0.5 MG Tab PO PRN (10:35)
[2022-11-13] MEDS ORDERED: Albuterol/Ipratropium 3.0-0.5 MG/3 ML Neb Soln NEB PRN (10:35)
[2022-11-13] MEDS ORDERED: HYDROmorphone 0.5 MG/0.5 ML Syringe IVPUSH PRN (10:35)
[2022-11-13] MEDS ORDERED: Magnesium Hydroxide 400 MG/5 ML Susp 30 ML Cup PO PRN (10:35)
[2022-11-13] MEDS ORDERED: Acetaminophen/HYDROcodone 325-5 MG Tab PO PRN (10:35)
[2022-11-13] MEDS ORDERED: Haloperidol Lactate 5 MG/ML SDV IVPUSH PRN (10:35)
[2022-11-13] MEDS ORDERED: Sodium Chloride 0.9% 20 ML SDV IV ONE (10:35)
[2022-11-13] MEDS ORDERED: Polyethylene Glycol 3350 Powder 17 GM Packet PO PRN (10:35)
[2022-11-13] MEDS ORDERED: Acetaminophen 325 MG Tab PO PRN (10:35)
[2022-11-13] MEDS ORDERED: Loperamide 2 MG Cap PO PRN (10:35)
[2022-11-13] MEDS ORDERED: Insulin Lispro 100 Units/ML 3 ML Vial SUBCUT SCH (12:00)
[2022-11-13] MEDS ORDERED: Carbidopa/Levodopa 25-250 MG Tab PO SCH (14:00)
[2022-11-13] MEDS ORDERED: LORazepam 1 MG Tab PO PRN (14:20)
[2022-11-13] MEDS ORDERED: Haloperidol 1 MG Tab PO PRN (14:21)
[2022-11-13] MEDS: Pregabalin 50 MG Cap PO SCH ×2 (14:21→17:02)
[2022-11-13] MEDS ORDERED: Midodrine 2.5 MG Tab PO SCH (18:00)
[2022-11-13] MEDS ORDERED: Insulin Glarg,Human.Rec.Analog 100 Unit/ML SUBCUT SCH (21:00)
[2022-11-13] MEDS ORDERED: Magnesium Oxide 400 MG Tab PO SCH (21:00)
[2022-11-13] MEDS ORDERED: Montelukast 10 MG Tab PO SCH (21:00)
[2022-11-13] MEDS ORDERED: Mirtazapine 15 MG Tab PO SCH (21:00)
[2022-11-13] MEDS ORDERED: Famotidine 20 MG Tab PO SCH (21:00)
[2022-11-13] MEDS ORDERED: QUEtiapine 100 MG Tab PO SCH (21:00)
[2022-11-13] MEDS ORDERED: Fluticasone NASAL Spray 16 GM Bottle NASBOTH SCH (21:00)
[2022-11-13] MEDS ORDERED: Betamethasone Dipropionate/Clotrimazole 0.05-1% Crm 15 GM Tube TOP SCH (21:00)
[2022-11-14] MEDS ORDERED: Thiamine 100 MG Tab PO SCH (09:00)
[2022-11-14] MEDS ORDERED: Aspirin 81 MG Tab.EC PO SCH (09:00)
[2022-11-14] MEDS ORDERED: atorvaSTATin 10 MG Tab PO SCH (09:00)
[2022-11-14] MEDS ORDERED: Folic Acid 1 MG Tab PO SCH (09:00)
[2022-11-14] MEDS ORDERED: Losartan 50 MG Tab PO SCH (09:00)
[2022-11-14] MEDS ORDERED: Multivitamin Tab PO SCH (09:00)
[2022-11-14] MEDS ORDERED: QUEtiapine 100 MG Tab PO SCH (09:00)
[2022-11-14] MEDS ORDERED: Venlafaxine 150 MG Cap.ER PO SCH (09:00)
== END 2022-11-13 18:13 | disposition left against medical advice (07) | DRG 948 ==
LOC: DL.MS 11-13 10:39
PROVIDERS: ADMIT Internal Medicine; ATTEND Internal Medicine
DX: R53.81 Other malaise (principal); E78.5 Hyperlipidemia, unspecified; K21.9 Gastro-esophageal reflux disease without esophagitis; G20 Parkinson's disease; F02.80 Dementia in other diseases classified elsewhere, unspecified severity, without behavioral disturbance, psychotic disturbance, mood disturbance, and anxiety; D63.8 Anemia in other chronic diseases classified elsewhere; F10.20 Alcohol dependence, uncomplicated; E11.42 Type 2 diabetes mellitus with diabetic polyneuropathy; E83.42 Hypomagnesemia; F41.9 Anxiety disorder, unspecified; F32.A Depression, unspecified; Z88.8 Allergy status to other drugs, medicaments and biological substances; Z79.899 Other long term (current) drug therapy
CPT/HCPCS: 82947; 97116-GP; 97161-GP; 97165-GO; A9270-GY

== ENCOUNTER 2022-11-18 15:46 | Inpatient (IN) | payer MEDICARE, MEDICAID ==
[2022-11-18 15:37] LABS: BASOPHILS PERCENT AUTO 0.6 % (0.0-1.0); EOSINOPHILS PERCENT AUTO 1.2 % (1.0-3.0); HEMATOCRIT 43.7 % (40.0-54.0); LYMPHOCYTES PERCENT AUTO 39.8 % (20.5-50.1); MEAN CORPUSCULAR HEMOGLOBIN 31.2 pg (27.0-34.0); MEAN CORPUSCULAR HGB CONC 34.3 g/dL (33.0-35.0); MEAN CORPUSCULAR VOLUME 90.9 fL (80-100); NEUTROPHILS PERCENT AUTO 42.4 % (42.2-75.2); PLATELET COUNT,PLT 298 10^3/uL (150-450); RED BLOOD CELL COUNT 4.81 10^6/uL (4.6-6.2)
[~2022-11-18 15:46] MED LIST changes: -Glucagon,Human Recombinant 1 MG Vial IM PRN; -Insulin Regular, Human 100 Units/ML 3 ML Vial IV ONE; +MVI, Adult with Vitamin K 10 ML, Folic Acid 1 MG, Thiamine 100 MG in Lactated Ringers 1... IV ONE; -Sodium Bicarbonate 8.4% 50 MEQ/50 ML Syringe IVPUSH ONE; -Sodium Chloride 0.9% 1,000 ML IV ONE
[2022-11-18] MEDS ORDERED: LORazepam 2 MG/ML SDV IVPUSH ONE ×2 (15:48→16:08)
[2022-11-18] MEDS: Sodium Chloride 0.9% 10 ML Syringe FLUSH PRN (15:57)
[2022-11-18 16:02] LABS: LACTIC ACID 1.6 mmol/L (0.4-2.0)
[2022-11-18 16:06] LABS: ALANINE AMINOTRANSFERASE,ALT 52 U/L (16-63); ALBUMIN 3.5 g/dL (3.4-5.0); ALKALINE PHOSPHATASE 91 U/L (46-116); ANION GAP 19.9 mEq/L (7-13); ASPARTATE AMNIOTRANSFERASE,AST 22 U/L (15-37); BLOOD UREA NITROGEN,BUN 11 mg/dL (7-18); BUN/CREATININE RATIO 11.7 (No establ ref range); C-REACTIVE PROTEIN 0.8 mg/dL (0.0-0.9); CALCIUM 8.7 mg/dL (8.5-10.1); CARBON DIOXIDE,CO2 21 mmol/L (21-32); CHLORIDE,CL 96 mmol/L (98-107); CREATININE 0.94 mg/dL (0.70-1.30); EST CRCL DRUG DOSING (CG) 77.66 mL/min; GLUCOSE RANDOM 290 mg/dL (70-99); MAGNESIUM 1.2 mg/dL (1.8-2.4); POTASSIUM,K 3.9 mmol/L (3.5-5.1); PROTEIN TOTAL,TP 6.9 g/dL (6.4-8.2); SODIUM,NA 133 mmol/L (136-145); TSH ULTRASENSITIVE 1.64 uIU/mL (0.36-3.74)
[2022-11-18 16:08] LABS: ESTIMATED GFR 88 mL/min (>=60); ETHANOL BLOOD MEDICAL < 3 mg/dL (0)
[2022-11-18 16:12] LABS: INR 1.1 (0.9-1.2); PROTHROMBIN TIME 10.8 SEC (9.0-12.0)
[2022-11-18] MEDS ORDERED: hydrALAZINE 20 MG/ML SDV IVPUSH PRN (17:40)
[2022-11-18] MEDS ORDERED: Metoprolol Tartrate 5 MG/5 ML SDV IVPUSH PRN (17:40)
[2022-11-18] MEDS ORDERED: LORazepam 0.5 MG Tab PO PRN (17:41)
[2022-11-18] MEDS ORDERED: Albuterol/Ipratropium 3.0-0.5 MG/3 ML Neb Soln NEB PRN (17:41)
[2022-11-18] MEDS ORDERED: cloNIDine 0.1 MG Tab PO PRN (17:41)
[2022-11-18] MEDS ORDERED: Polyethylene Glycol 3350 Powder 17 GM Packet PO PRN (17:41)
[2022-11-18] MEDS ORDERED: Magnesium Hydroxide 400 MG/5 ML Susp 30 ML Cup PO PRN (17:41)
[2022-11-18] MEDS ORDERED: Ondansetron 4 MG/2 ML SDV IVPUSH PRN (17:41)
[2022-11-18] MEDS: LORazepam 2 MG/ML SDV IV PRN ×2 (18:30→21:51)
[2022-11-18] MEDS: HYDROmorphone 0.5 MG/0.5 ML Syringe IVPUSH PRN (18:55)
[2022-11-18] MEDS: Ziprasidone Mesylate 20 MG Vial IM PRN (19:13)
[2022-11-18] MEDS: Famotidine 20 MG Tab PO SCH ×2 (19:19→20:09)
[2022-11-18] MEDS: Nicotine 21 MG/24 Hr Patch TRDERM SCH (20:40)
[2022-11-18] MEDS ORDERED: Ziprasidone Mesylate 20 MG Vial IM ONE (22:28)
[2022-11-18] MEDS ORDERED: Carbidopa/Levodopa 25-250 MG Tab PO ONE (23:01)
[2022-11-19] MEDS: HYDROmorphone 0.5 MG/0.5 ML Syringe IVPUSH PRN ×6 (00:14→21:59)
[2022-11-19] MEDS ORDERED: 50% Dextrose in Water 50 ML Syringe IVPUSH PRN (05:42)
[2022-11-19] MEDS ORDERED: Glucagon,Human Recombinant 1 MG Vial IM PRN (05:42)
[2022-11-19] MEDS ORDERED: Magnesium Sulfate/Water 4 GM in Premix Bag 1 BAG IV ONE (05:43)
[2022-11-19] MEDS ORDERED: Sodium Chloride 0.9% 1,000 ML IV SCH (07:00)
[2022-11-19] MEDS: Insulin Lispro 100 Units/ML 3 ML Vial SUBCUT SCH ×3 (07:53→17:03)
[2022-11-19] MEDS: Famotidine 20 MG Tab PO SCH ×2 (08:40→20:36)
[2022-11-19] MEDS: Multivitamin Tab PO SCH (08:41)
[2022-11-19] MEDS: Thiamine 100 MG Tab PO SCH (08:41)
[2022-11-19] MEDS: Folic Acid 1 MG Tab PO SCH (08:42)
[2022-11-19] MEDS: Nicotine 21 MG/24 Hr Patch TRDERM SCH (08:42)
[2022-11-19 08:50] LABS: BASOPHILS PERCENT AUTO 1.1 % (0.0-1.0); EOSINOPHILS PERCENT AUTO 2.6 % (1.0-3.0); HEMATOCRIT 43.9 % (40.0-54.0); HEMOGLOBIN 14.9 g/dL (14.0-18.0); LYMPHOCYTES PERCENT AUTO 36.1 % (20.5-50.1); MEAN CORPUSCULAR HGB CONC 33.9 g/dL (33.0-35.0); MEAN CORPUSCULAR VOLUME 91.3 fL (80-100); NEUTROPHILS PERCENT AUTO 46.2 % (42.2-75.2); PLATELET COUNT,PLT 269 10^3/uL (150-450); RED BLOOD CELL COUNT 4.81 10^6/uL (4.6-6.2); WHITE BLOOD CELL COUNT,WBC 6.5 10^3/uL (5.0-10.0)
[2022-11-19 09:09] LABS: ALBUMIN 3.2 g/dL (3.4-5.0); ANION GAP 15.4 mEq/L (7-13); BILIRUBIN TOTAL 0.9 mg/dL (0.2-1.0); BUN/CREATININE RATIO 9.5 (No establ ref range); CALCIUM 8.4 mg/dL (8.5-10.1); CREATININE 0.74 mg/dL (0.70-1.30); EST CRCL DRUG DOSING (CG) 95.54 mL/min; MAGNESIUM 2.1 mg/dL (1.8-2.4); POTASSIUM,K 3.4 mmol/L (3.5-5.1); PROTEIN TOTAL,TP 6.4 g/dL (6.4-8.2)
[2022-11-19] MEDS ORDERED: Potassium Chloride 10 MEQ Tab.ER PO ONE (12:00)
[2022-11-19] MEDS: Ziprasidone Mesylate 20 MG Vial IM PRN (15:52)
[2022-11-19 17:01] LABS: APPEARANCE,URINE CLEAR (CLEAR); BILIRUBIN,URINE NEGATIVE (NEGATIVE); COLOR,URINE YELLOW (YELLOW); GLUCOSE,URINE 500 (NEGATIVE); KETONES,URINE 40 (NEGATIVE); LEUKOCYTE ESTERASE,URINE NEGATIVE (NEGATIVE); NITRITE,URINE NEGATIVE (NEGATIVE); OCCULT BLOOD,URINE NEGATIVE (NEGATIVE); PH,URINE 5.5 (5.0-9.0); PROTEIN,URINE NEGATIVE (NEGATIVE); UROBILINOGEN,URINE 0.2 mg/dL (0.2-1.0)
[2022-11-19] MEDS: Pregabalin 50 MG Cap PO SCH (17:04)
[2022-11-19] MEDS: QUEtiapine 100 MG Tab PO SCH ×4 (19:23→20:38)
[2022-11-19] MEDS: Mirtazapine 15 MG Tab PO SCH ×2 (19:24→20:37)
[2022-11-19] MEDS: hydrOXYzine HCl 25 MG Tab PO SCH ×2 (19:25→20:36)
[2022-11-19] MEDS ORDERED: Emollient Combination No.71 177 ML Bottle TOP PRN ×2 (20:17→20:30)
[2022-11-19] MEDS: Magnesium Oxide 400 MG Tab PO SCH (20:36)
[2022-11-19] MEDS: Fluticasone NASAL Spray 16 GM Bottle NASBOTH SCH (20:36)
[2022-11-19] MEDS: atorvaSTATin 10 MG Tab PO SCH (20:36)
[2022-11-19] MEDS: Montelukast 10 MG Tab PO SCH (20:37)
[2022-11-19] MEDS ORDERED: Melatonin 3 MG Tab PO SCH (21:00)
[2022-11-19] MEDS: Ketorolac 30 MG/ML SDV IVPUSH PRN (21:01)
[2022-11-19] MEDS: Carbidopa/Levodopa 25-250 MG Tab PO SCH (21:01)
[2022-11-20] MEDS: Omeprazole 20 MG Cap.CR PO SCH (06:34)
[2022-11-20] MEDS: Insulin Lispro 100 Units/ML 3 ML Vial SUBCUT SCH ×3 (08:52→17:15)
[2022-11-20] MEDS: Famotidine 20 MG Tab PO SCH ×2 (08:53→20:19)
[2022-11-20] MEDS: Folic Acid 1 MG Tab PO SCH ×2 (08:54→10:36)
[2022-11-20] MEDS: Loratadine 10 MG Tab PO SCH (08:54)
[2022-11-20] MEDS: Aspirin 81 MG Tab.EC PO SCH (08:55)
[2022-11-20] MEDS: Magnesium Oxide 400 MG Tab PO SCH ×2 (08:55→20:21)
[2022-11-20] MEDS: Multivitamin Tab PO SCH (08:55)
[2022-11-20] MEDS: Pregabalin 50 MG Cap PO SCH ×3 (08:55→17:16)
[2022-11-20] MEDS: Thiamine 100 MG Tab PO SCH (08:55)
[2022-11-20] MEDS: Carbidopa/Levodopa 25-250 MG Tab PO SCH ×3 (08:55→20:20)
[2022-11-20] MEDS ORDERED: Venlafaxine 150 MG Cap.ER PO SCH (09:00)
[2022-11-20] MEDS ORDERED: Venlafaxine 37.5 MG Cap.ER PO SCH (09:00)
[2022-11-20 09:05] LABS: ALBUMIN 3.1 g/dL (3.4-5.0); BILIRUBIN TOTAL 0.6 mg/dL (0.2-1.0); CALCIUM 8.6 mg/dL (8.5-10.1); CREATININE 0.69 mg/dL (0.70-1.30); EST CRCL DRUG DOSING (CG) 102.46 mL/min; MAGNESIUM 1.6 mg/dL (1.8-2.4); PROTEIN TOTAL,TP 6.4 g/dL (6.4-8.2)
[2022-11-20 09:17] LABS: A/G RATIO 0.94
[2022-11-20] MEDS: HYDROmorphone 0.5 MG/0.5 ML Syringe IVPUSH PRN (09:29)
[2022-11-20] MEDS ORDERED: Flumazenil 0.1 MG/ML 5 ML MDV IVPUSH PRN (09:42)
[2022-11-20] MEDS ORDERED: Magnesium Sulfate/Water 2 GM in Premix Bag 1 BAG IV ONE (09:47)
[2022-11-20] MEDS: Haloperidol Lactate 5 MG/ML SDV IVPUSH PRN (09:53)
[2022-11-20] MEDS: Dextrose 5%-0.9% NaCl 1,000 ML IV SCH (10:17)
[2022-11-20] MEDS: Nicotine 21 MG/24 Hr Patch TRDERM SCH (10:34)
[2022-11-20] MEDS: QUEtiapine 100 MG Tab PO SCH ×2 (10:45→20:22)
[2022-11-20] MEDS: Fluticasone NASAL Spray 16 GM Bottle NASBOTH SCH ×2 (10:56→20:23)
[2022-11-20] MEDS: Betamethasone Dipropionate/Clotrimazole 0.05-1% Crm 15 GM Tube TOP SCH ×2 (14:54→20:24)
[2022-11-20] MEDS ORDERED: Thiamine 200 MG in Sodium Chloride 0.9% 100 ML IV ONE (19:24)
[2022-11-20] MEDS: Montelukast 10 MG Tab PO SCH (20:20)
[2022-11-20] MEDS: Mirtazapine 15 MG Tab PO SCH (20:21)
[2022-11-20] MEDS: atorvaSTATin 10 MG Tab PO SCH (20:21)
[2022-11-20] MEDS: hydrOXYzine HCl 25 MG Tab PO SCH (20:22)
[2022-11-21] MEDS: HYDROmorphone 0.5 MG/0.5 ML Syringe IVPUSH PRN ×3 (02:27→22:00)
[2022-11-21] MEDS: Dextrose 5%-0.9% NaCl 1,000 ML IV SCH (05:15)
[2022-11-21] MEDS: Omeprazole 20 MG Cap.CR PO SCH (05:26)
[2022-11-21 07:04] LABS: ANION GAP 14.6 mEq/L (7-13); BILIRUBIN TOTAL 0.4 mg/dL (0.2-1.0); CALCIUM 8.5 mg/dL (8.5-10.1); CREATININE 0.67 mg/dL (0.70-1.30); EST CRCL DRUG DOSING (CG) 105.52 mL/min; MAGNESIUM 1.5 mg/dL (1.8-2.4); POTASSIUM,K 3.6 mmol/L (3.5-5.1); PROTEIN TOTAL,TP 6.2 g/dL (6.4-8.2)
[2022-11-21 07:08] LABS: A/G RATIO 0.94
[2022-11-21] MEDS: Betamethasone Dipropionate/Clotrimazole 0.05-1% Crm 15 GM Tube TOP SCH ×3 (07:49→20:08)
[2022-11-21] MEDS: Fluticasone NASAL Spray 16 GM Bottle NASBOTH SCH ×2 (08:08→20:07)
[2022-11-21] MEDS: Nicotine 21 MG/24 Hr Patch TRDERM SCH (08:09)
[2022-11-21] MEDS: Pregabalin 50 MG Cap PO SCH ×3 (08:10→17:01)
[2022-11-21] MEDS: QUEtiapine 100 MG Tab PO SCH ×2 (08:11→20:09)
[2022-11-21] MEDS: chlordiazePOXIDE 25 MG Cap PO SCH (08:11)
[2022-11-21] MEDS: Carbidopa/Levodopa 25-250 MG Tab PO SCH ×3 (08:11→20:10)
[2022-11-21] MEDS: Multivitamin Tab PO SCH (08:12)
[2022-11-21] MEDS: Loratadine 10 MG Tab PO SCH (08:12)
[2022-11-21] MEDS: Famotidine 20 MG Tab PO SCH ×2 (08:12→20:08)
[2022-11-21] MEDS: Aspirin 81 MG Tab.EC PO SCH (08:12)
[2022-11-21] MEDS: Insulin Lispro 100 Units/ML 3 ML Vial SUBCUT SCH ×3 (08:13→17:02)
[2022-11-21] MEDS: Thiamine 100 MG Tab PO SCH (08:13)
[2022-11-21] MEDS: Folic Acid 1 MG Tab PO SCH ×2 (08:13→08:37)
[2022-11-21] MEDS: Magnesium Oxide 400 MG Tab PO SCH ×2 (08:13→20:08)
[2022-11-21] MEDS ORDERED: Magnesium Sulfate/Water 2 GM in Premix Bag 1 BAG IV ONE ×2 (12:00→18:00)
[2022-11-21] MEDS: hydrOXYzine HCl 25 MG Tab PO SCH (20:07)
[2022-11-21] MEDS: atorvaSTATin 10 MG Tab PO SCH (20:08)
[2022-11-21] MEDS: Mirtazapine 15 MG Tab PO SCH (20:09)
[2022-11-21] MEDS: Montelukast 10 MG Tab PO SCH (20:10)
[2022-11-21] MEDS: LORazepam 2 MG/ML SDV IV PRN (20:30)
[2022-11-21] MEDS: Haloperidol Lactate 5 MG/ML SDV IVPUSH PRN (20:30)
[2022-11-22] MEDS: LORazepam 2 MG/ML SDV IV PRN
[2022-11-22] MEDS: Omeprazole 20 MG Cap.CR PO SCH (06:39)
[2022-11-22] MEDS: Betamethasone Dipropionate/Clotrimazole 0.05-1% Crm 15 GM Tube TOP SCH ×2 (08:52→22:09)
[2022-11-22] MEDS: Insulin Lispro 100 Units/ML 3 ML Vial SUBCUT SCH ×3 (08:53→17:33)
[2022-11-22] MEDS: Nicotine 21 MG/24 Hr Patch TRDERM SCH (08:53)
[2022-11-22] MEDS: Pregabalin 50 MG Cap PO SCH ×3 (08:54→17:34)
[2022-11-22] MEDS: chlordiazePOXIDE 25 MG Cap PO SCH (08:54)
[2022-11-22] MEDS: Aspirin 81 MG Tab.EC PO SCH (08:55)
[2022-11-22] MEDS: Folic Acid 1 MG Tab PO SCH (08:55)
[2022-11-22] MEDS: Famotidine 20 MG Tab PO SCH ×2 (08:55→22:07)
[2022-11-22] MEDS: Thiamine 100 MG Tab PO SCH (08:55)
[2022-11-22] MEDS: Carbidopa/Levodopa 25-250 MG Tab PO SCH ×3 (08:56→22:08)
[2022-11-22] MEDS: Magnesium Oxide 400 MG Tab PO SCH ×2 (08:56→22:08)
[2022-11-22] MEDS: Multivitamin Tab PO SCH (08:56)
[2022-11-22] MEDS: QUEtiapine 100 MG Tab PO SCH ×2 (08:56→22:06)
[2022-11-22] MEDS: Loratadine 10 MG Tab PO SCH (08:57)
[2022-11-22] MEDS: Fluticasone NASAL Spray 16 GM Bottle NASBOTH SCH ×2 (08:57→22:09)
[2022-11-22] MEDS: Sennosides/Docusate Sodium 50-8.6 MG Tab PO PRN (11:47)
[2022-11-22] MEDS ORDERED: 50% Dextrose in Water 50 ML Syringe IVPUSH PRN (12:49)
[2022-11-22] MEDS ORDERED: Glucagon,Human Recombinant 1 MG Vial IM PRN (12:49)
[2022-11-22] MEDS: HYDROmorphone 0.5 MG/0.5 ML Syringe IVPUSH PRN ×2 (17:35)
[2022-11-22] MEDS ORDERED: Insulin Glarg,Human.Rec.Analog 100 Unit/ML SUBCUT SCH (21:00)
[2022-11-22] MEDS: hydrOXYzine HCl 25 MG Tab PO SCH (22:05)
[2022-11-22] MEDS: atorvaSTATin 10 MG Tab PO SCH (22:07)
[2022-11-22] MEDS: Montelukast 10 MG Tab PO SCH (22:08)
[2022-11-22] MEDS: Mirtazapine 15 MG Tab PO SCH (22:09)
[2022-11-23] MEDS: Acetaminophen 325 MG Tab PO PRN (00:58)
[2022-11-23] MEDS: Omeprazole 20 MG Cap.CR PO SCH (06:00)
[2022-11-23 06:49] LABS: ALBUMIN 3.1 g/dL (3.4-5.0); BILIRUBIN TOTAL 0.4 mg/dL (0.2-1.0); BUN/CREATININE RATIO 5.6 (No establ ref range); CALCIUM 8.9 mg/dL (8.5-10.1); CREATININE 0.72 mg/dL (0.70-1.30); EST CRCL DRUG DOSING (CG) 98.19 mL/min; MAGNESIUM 1.3 mg/dL (1.8-2.4); PROTEIN TOTAL,TP 6.3 g/dL (6.4-8.2)
[2022-11-23 06:54] LABS: A/G RATIO 0.97
[2022-11-23] MEDS: chlordiazePOXIDE 25 MG Cap PO SCH (08:18)
[2022-11-23] MEDS: Pregabalin 50 MG Cap PO SCH ×3 (08:18→17:51)
[2022-11-23] MEDS: Thiamine 100 MG Tab PO SCH (08:18)
[2022-11-23] MEDS: Multivitamin Tab PO SCH (08:18)
[2022-11-23] MEDS: Magnesium Oxide 400 MG Tab PO SCH ×2 (08:18→21:08)
[2022-11-23] MEDS: Famotidine 20 MG Tab PO SCH ×2 (08:18→21:07)
[2022-11-23] MEDS: QUEtiapine 100 MG Tab PO SCH ×2 (08:18→21:07)
[2022-11-23] MEDS: Nicotine 21 MG/24 Hr Patch TRDERM SCH (08:19)
[2022-11-23] MEDS: Fluticasone NASAL Spray 16 GM Bottle NASBOTH SCH ×2 (08:19→21:08)
[2022-11-23] MEDS: Aspirin 81 MG Tab.EC PO SCH (08:19)
[2022-11-23] MEDS: Loratadine 10 MG Tab PO SCH (08:19)
[2022-11-23] MEDS: Folic Acid 1 MG Tab PO SCH (08:19)
[2022-11-23] MEDS: Carbidopa/Levodopa 25-250 MG Tab PO SCH ×3 (08:19→21:07)
[2022-11-23] MEDS: Insulin Glarg,Human.Rec.Analog 100 Unit/ML SUBCUT SCH ×2 (08:20→22:00)
[2022-11-23] MEDS: Insulin Lispro 100 Units/ML 3 ML Vial SUBCUT SCH ×3 (08:20→17:50)
[2022-11-23] MEDS: Betamethasone Dipropionate/Clotrimazole 0.05-1% Crm 15 GM Tube TOP SCH ×2 (08:22→21:09)
[2022-11-23] MEDS ORDERED: Magnesium Sulfate/Water 4 GM in Premix Bag 1 BAG IV ONE (08:23)
[2022-11-23] MEDS: hydrOXYzine HCl 25 MG Tab PO SCH (21:06)
[2022-11-23] MEDS: Mirtazapine 15 MG Tab PO SCH (21:07)
[2022-11-23] MEDS: atorvaSTATin 10 MG Tab PO SCH (21:08)
[2022-11-23] MEDS: Montelukast 10 MG Tab PO SCH (21:08)
[2022-11-23] MEDS: Sennosides/Docusate Sodium 50-8.6 MG Tab PO PRN (21:09)
[2022-11-24] MEDS: Acetaminophen 325 MG Tab PO PRN (01:12)
[2022-11-24] MEDS: Omeprazole 20 MG Cap.CR PO SCH (06:20)
[2022-11-24] MEDS: Fluticasone NASAL Spray 16 GM Bottle NASBOTH SCH ×2 (08:14→20:06)
[2022-11-24] MEDS: Magnesium Oxide 400 MG Tab PO SCH ×2 (08:15→20:05)
[2022-11-24] MEDS: Folic Acid 1 MG Tab PO SCH (08:15)
[2022-11-24] MEDS: Famotidine 20 MG Tab PO SCH ×2 (08:15→20:05)
[2022-11-24] MEDS: Pregabalin 50 MG Cap PO SCH (08:15)
[2022-11-24] MEDS: Thiamine 100 MG Tab PO SCH (08:16)
[2022-11-24] MEDS: Loratadine 10 MG Tab PO SCH (08:16)
[2022-11-24] MEDS: Carbidopa/Levodopa 25-250 MG Tab PO SCH ×3 (08:16→20:05)
[2022-11-24] MEDS: Nicotine 21 MG/24 Hr Patch TRDERM SCH (08:16)
[2022-11-24] MEDS: QUEtiapine 100 MG Tab PO SCH ×2 (08:16→20:04)
[2022-11-24] MEDS: Multivitamin Tab PO SCH (08:16)
[2022-11-24] MEDS: Insulin Glarg,Human.Rec.Analog 100 Unit/ML SUBCUT SCH ×2 (08:17→20:06)
[2022-11-24] MEDS: Aspirin 81 MG Tab.EC PO SCH (08:17)
[2022-11-24] MEDS: chlordiazePOXIDE 25 MG Cap PO SCH (08:17)
[2022-11-24] MEDS: Insulin Lispro 100 Units/ML 3 ML Vial SUBCUT SCH ×3 (08:20→16:56)
[2022-11-24] MEDS: Betamethasone Dipropionate/Clotrimazole 0.05-1% Crm 15 GM Tube TOP SCH ×2 (08:32→22:54)
[2022-11-24] MEDS ORDERED: Bisacodyl 10 MG Supp RECTAL ONE (12:14)
[2022-11-24] MEDS: LORazepam 2 MG/ML SDV IVPUSH PRN (19:00)
[2022-11-24] MEDS: Montelukast 10 MG Tab PO SCH (20:05)
[2022-11-24] MEDS: atorvaSTATin 10 MG Tab PO SCH (20:05)
[2022-11-24] MEDS: Mirtazapine 15 MG Tab PO SCH (20:05)
[2022-11-24] MEDS: hydrOXYzine HCl 25 MG Tab PO SCH (20:06)
[2022-11-25] MEDS: Famotidine 20 MG Tab PO SCH ×2 (08:40→20:04)
[2022-11-25] MEDS: chlordiazePOXIDE 25 MG Cap PO SCH (08:41)
[2022-11-25] MEDS: QUEtiapine 100 MG Tab PO SCH ×2 (08:41→20:11)
[2022-11-25] MEDS: Multivitamin Tab PO SCH (08:42)
[2022-11-25] MEDS: Loratadine 10 MG Tab PO SCH (08:42)
[2022-11-25] MEDS: Folic Acid 1 MG Tab PO SCH (08:43)
[2022-11-25] MEDS: Aspirin 81 MG Tab.EC PO SCH (08:43)
[2022-11-25] MEDS: Magnesium Oxide 400 MG Tab PO SCH ×2 (08:43→20:04)
[2022-11-25] MEDS: Carbidopa/Levodopa 25-250 MG Tab PO SCH ×3 (08:43→20:03)
[2022-11-25] MEDS: Fluticasone NASAL Spray 16 GM Bottle NASBOTH SCH ×2 (08:44→20:03)
[2022-11-25] MEDS: Insulin Lispro 100 Units/ML 3 ML Vial SUBCUT SCH ×3 (08:46→17:05)
[2022-11-25] MEDS: Insulin Glarg,Human.Rec.Analog 100 Unit/ML SUBCUT SCH ×2 (08:55→20:07)
[2022-11-25] MEDS: Nicotine 21 MG/24 Hr Patch TRDERM SCH (09:04)
[2022-11-25] MEDS: Thiamine 100 MG Tab PO SCH (09:09)
[2022-11-25] MEDS: Betamethasone Dipropionate/Clotrimazole 0.05-1% Crm 15 GM Tube TOP SCH ×2 (09:09→20:11)
[2022-11-25] MEDS: Omeprazole 20 MG Cap.CR PO SCH (09:20)
[2022-11-25] MEDS: Acetaminophen 325 MG Tab PO PRN (15:53)
[2022-11-25] MEDS ORDERED: Fludrocortisone 0.1 MG Tab PO ONE (17:37)
[2022-11-25] MEDS ORDERED: Midodrine 2.5 MG Tab PO ONE (17:37)
[2022-11-25] MEDS ORDERED: Sodium Chloride 0.9% 500 ML IV SCH (17:45)
[2022-11-25] MEDS: Ketorolac 30 MG/ML SDV IVPUSH PRN (18:12)
[2022-11-25] MEDS: HYDROmorphone 0.5 MG/0.5 ML Syringe IVPUSH PRN (19:45)
[2022-11-25] MEDS: Montelukast 10 MG Tab PO SCH (20:04)
[2022-11-25] MEDS: hydrOXYzine HCl 25 MG Tab PO SCH (20:04)
[2022-11-25] MEDS: Mirtazapine 15 MG Tab PO SCH (20:04)
[2022-11-25] MEDS: atorvaSTATin 10 MG Tab PO SCH (20:04)
[2022-11-26] MEDS: Midodrine 2.5 MG Tab PO SCH ×5 (06:07→18:10)
[2022-11-26] MEDS: Omeprazole 20 MG Cap.CR PO SCH (06:07)
[2022-11-26] MEDS: Nicotine 21 MG/24 Hr Patch TRDERM SCH (08:39)
[2022-11-26] MEDS: Famotidine 20 MG Tab PO SCH ×2 (08:39→20:30)
[2022-11-26] MEDS: Carbidopa/Levodopa 25-250 MG Tab PO SCH ×5 (08:40→20:30)
[2022-11-26] MEDS: Folic Acid 1 MG Tab PO SCH (08:40)
[2022-11-26] MEDS: Loratadine 10 MG Tab PO SCH (08:40)
[2022-11-26] MEDS: Thiamine 100 MG Tab PO SCH (08:40)
[2022-11-26] MEDS: Aspirin 81 MG Tab.EC PO SCH (08:40)
[2022-11-26] MEDS: Multivitamin Tab PO SCH (08:40)
[2022-11-26] MEDS: Magnesium Oxide 400 MG Tab PO SCH ×2 (08:40→20:30)
[2022-11-26] MEDS: chlordiazePOXIDE 25 MG Cap PO SCH (08:40)
[2022-11-26] MEDS: Fluticasone NASAL Spray 16 GM Bottle NASBOTH SCH ×2 (08:43→21:10)
[2022-11-26] MEDS: Insulin Lispro 100 Units/ML 3 ML Vial SUBCUT SCH ×3 (08:43→17:08)
[2022-11-26] MEDS: QUEtiapine 100 MG Tab PO SCH ×2 (08:43→20:30)
[2022-11-26] MEDS: Insulin Glarg,Human.Rec.Analog 100 Unit/ML SUBCUT SCH ×2 (08:44→21:00)
[2022-11-26] MEDS: Betamethasone Dipropionate/Clotrimazole 0.05-1% Crm 15 GM Tube TOP SCH ×2 (08:44→22:30)
[2022-11-26] MEDS: chlordiazePOXIDE 25 MG Cap PO ONE ×2 (16:47→18:10)
[2022-11-26] MEDS: hydrOXYzine HCl 25 MG Tab PO ONE ×2 (16:48→18:10)
[2022-11-26] MEDS: HYDROmorphone 0.5 MG/0.5 ML Syringe IVPUSH PRN (19:00)
[2022-11-26] MEDS: LORazepam 2 MG/ML SDV IVPUSH PRN (19:00)
[2022-11-26] MEDS: Montelukast 10 MG Tab PO SCH (20:30)
[2022-11-26] MEDS: hydrOXYzine HCl 25 MG Tab PO SCH (20:30)
[2022-11-26] MEDS: Mirtazapine 15 MG Tab PO SCH (20:30)
[2022-11-26] MEDS: atorvaSTATin 10 MG Tab PO SCH (20:30)
[2022-11-27] MEDS: HYDROmorphone 0.5 MG/0.5 ML Syringe IVPUSH PRN ×3 (03:30→21:00)
[2022-11-27] MEDS: LORazepam 2 MG/ML SDV IVPUSH PRN ×4 (03:30→19:00)
[2022-11-27] MEDS: Midodrine 2.5 MG Tab PO SCH ×3 (05:07→17:56)
[2022-11-27] MEDS: Omeprazole 20 MG Cap.CR PO SCH (05:07)
[2022-11-27] MEDS: chlordiazePOXIDE 25 MG Cap PO SCH (11:37)
[2022-11-27] MEDS: Folic Acid 1 MG Tab PO SCH (11:38)
[2022-11-27] MEDS: Carbidopa/Levodopa 25-250 MG Tab PO SCH ×3 (11:38→21:00)
[2022-11-27] MEDS: Aspirin 81 MG Tab.EC PO SCH (11:38)
[2022-11-27] MEDS: Magnesium Oxide 400 MG Tab PO SCH ×2 (11:38→21:00)
[2022-11-27] MEDS: Insulin Lispro 100 Units/ML 3 ML Vial SUBCUT SCH ×4 (11:39→17:57)
[2022-11-27] MEDS: Multivitamin Tab PO SCH (11:39)
[2022-11-27] MEDS: Nicotine 21 MG/24 Hr Patch TRDERM SCH (11:40)
[2022-11-27] MEDS: Loratadine 10 MG Tab PO SCH (11:40)
[2022-11-27] MEDS: Fluticasone NASAL Spray 16 GM Bottle NASBOTH SCH ×2 (11:40→21:00)
[2022-11-27] MEDS: Insulin Glarg,Human.Rec.Analog 100 Unit/ML SUBCUT SCH ×2 (11:42→21:00)
[2022-11-27] MEDS: Betamethasone Dipropionate/Clotrimazole 0.05-1% Crm 15 GM Tube TOP SCH ×2 (11:43→21:00)
[2022-11-27] MEDS: QUEtiapine 100 MG Tab PO SCH ×2 (11:44→21:00)
[2022-11-27] MEDS: Thiamine 100 MG Tab PO SCH (11:44)
[2022-11-27] MEDS: Famotidine 20 MG Tab PO SCH ×2 (11:45→21:00)
[2022-11-27] MEDS: Ketorolac 30 MG/ML SDV IVPUSH PRN ×2 (12:20→19:00)
[2022-11-27] MEDS: Montelukast 10 MG Tab PO SCH (21:00)
[2022-11-27] MEDS: hydrOXYzine HCl 25 MG Tab PO SCH (21:00)
[2022-11-27] MEDS: Mirtazapine 15 MG Tab PO SCH (21:00)
[2022-11-27] MEDS: atorvaSTATin 10 MG Tab PO SCH (21:00)
[2022-11-28] MEDS: Omeprazole 20 MG Cap.CR PO SCH (05:59)
[2022-11-28] MEDS: Midodrine 2.5 MG Tab PO SCH ×3 (05:59→15:19)
[2022-11-28] MEDS: Insulin Lispro 100 Units/ML 3 ML Vial SUBCUT SCH ×3 (12:10→17:32)
[2022-11-28] MEDS: Insulin Glarg,Human.Rec.Analog 100 Unit/ML SUBCUT SCH ×2 (12:11→20:23)
[2022-11-28] MEDS: Fluticasone NASAL Spray 16 GM Bottle NASBOTH SCH ×2 (12:11→20:22)
[2022-11-28] MEDS: Carbidopa/Levodopa 25-250 MG Tab PO SCH ×3 (12:12→20:19)
[2022-11-28] MEDS: chlordiazePOXIDE 25 MG Cap PO SCH (15:18)
[2022-11-28] MEDS: Multivitamin Tab PO SCH (15:18)
[2022-11-28] MEDS: Aspirin 81 MG Tab.EC PO SCH (15:18)
[2022-11-28] MEDS: Sennosides/Docusate Sodium 50-8.6 MG Tab PO PRN (15:19)
[2022-11-28] MEDS: Famotidine 20 MG Tab PO SCH ×2 (15:19→20:19)
[2022-11-28] MEDS: Loratadine 10 MG Tab PO SCH (15:19)
[2022-11-28] MEDS: Folic Acid 1 MG Tab PO SCH (15:20)
[2022-11-28] MEDS: Thiamine 100 MG Tab PO SCH (15:20)
[2022-11-28] MEDS: QUEtiapine 100 MG Tab PO SCH ×2 (15:21→20:18)
[2022-11-28] MEDS: Betamethasone Dipropionate/Clotrimazole 0.05-1% Crm 15 GM Tube TOP SCH ×2 (15:22→20:34)
[2022-11-28] MEDS: Nicotine 21 MG/24 Hr Patch TRDERM SCH (15:22)
[2022-11-28] MEDS: Magnesium Oxide 400 MG Tab PO SCH ×2 (15:24→20:19)
[2022-11-28] MEDS: LORazepam 2 MG/ML SDV IVPUSH PRN (18:05)
[2022-11-28] MEDS: Mirtazapine 15 MG Tab PO SCH (20:17)
[2022-11-28] MEDS: hydrOXYzine HCl 25 MG Tab PO SCH (20:17)
[2022-11-28] MEDS: Montelukast 10 MG Tab PO SCH (20:19)
[2022-11-28] MEDS: atorvaSTATin 10 MG Tab PO SCH (20:19)
[2022-11-28] MEDS: Ketorolac 30 MG/ML SDV IVPUSH PRN (20:20)
[2022-11-28] MEDS: HYDROmorphone 0.5 MG/0.5 ML Syringe IVPUSH PRN (20:21)
[2022-11-29] MEDS: Midodrine 2.5 MG Tab PO SCH (05:56)
[2022-11-29] MEDS: HYDROmorphone 0.5 MG/0.5 ML Syringe IVPUSH PRN ×3 (06:08→20:34)
[2022-11-29] MEDS: Omeprazole 20 MG Cap.CR PO SCH (06:26)
[2022-11-29] MEDS: Insulin Lispro 100 Units/ML 3 ML Vial SUBCUT SCH ×3 (11:37→17:07)
[2022-11-29] MEDS: chlordiazePOXIDE 25 MG Cap PO SCH (11:37)
[2022-11-29] MEDS: Famotidine 20 MG Tab PO SCH ×2 (11:39→20:14)
[2022-11-29] MEDS: Magnesium Oxide 400 MG Tab PO SCH ×2 (11:39→20:14)
[2022-11-29] MEDS: Thiamine 100 MG Tab PO SCH (11:39)
[2022-11-29] MEDS: Multivitamin Tab PO SCH (11:40)
[2022-11-29] MEDS: Folic Acid 1 MG Tab PO SCH (11:40)
[2022-11-29] MEDS: Loratadine 10 MG Tab PO SCH (11:40)
[2022-11-29] MEDS: Carbidopa/Levodopa 25-250 MG Tab PO SCH ×4 (11:41→20:14)
[2022-11-29] MEDS: QUEtiapine 100 MG Tab PO SCH ×2 (11:44→20:14)
[2022-11-29] MEDS: Fluticasone NASAL Spray 16 GM Bottle NASBOTH SCH ×2 (11:47→20:21)
[2022-11-29] MEDS: Nicotine 21 MG/24 Hr Patch TRDERM SCH (11:48)
[2022-11-29] MEDS: Aspirin 81 MG Tab.EC PO SCH (11:49)
[2022-11-29] MEDS: Insulin Glarg,Human.Rec.Analog 100 Unit/ML SUBCUT SCH ×2 (11:50→20:43)
[2022-11-29] MEDS: Betamethasone Dipropionate/Clotrimazole 0.05-1% Crm 15 GM Tube TOP SCH ×2 (11:52→21:20)
[2022-11-29] MEDS: hydrOXYzine HCl 25 MG Tab PO SCH (20:14)
[2022-11-29] MEDS: atorvaSTATin 10 MG Tab PO SCH (20:14)
[2022-11-29] MEDS: Montelukast 10 MG Tab PO SCH (20:14)
[2022-11-29] MEDS: Mirtazapine 15 MG Tab PO SCH (20:14)
[2022-11-29] MEDS: Ketorolac 30 MG/ML SDV IVPUSH PRN (20:49)
[2022-11-29] MEDS: LORazepam 2 MG/ML SDV IVPUSH PRN (21:13)
[2022-11-30] MEDS: Omeprazole 20 MG Cap.CR PO SCH (06:25)
[2022-11-30] MEDS ORDERED: Sodium Chloride 0.9% 500 ML IV SCH (09:30)
[2022-11-30] MEDS: Thiamine 100 MG Tab PO SCH (10:05)
[2022-11-30] MEDS: Famotidine 20 MG Tab PO SCH ×3 (10:05→20:15)
[2022-11-30] MEDS: Magnesium Oxide 400 MG Tab PO SCH ×3 (10:05→20:15)
[2022-11-30] MEDS: Loratadine 10 MG Tab PO SCH (10:05)
[2022-11-30] MEDS: QUEtiapine 100 MG Tab PO SCH ×3 (10:05→20:16)
[2022-11-30] MEDS: Folic Acid 1 MG Tab PO SCH (10:05)
[2022-11-30] MEDS: chlordiazePOXIDE 25 MG Cap PO SCH (10:05)
[2022-11-30] MEDS: Multivitamin Tab PO SCH (10:06)
[2022-11-30] MEDS: Nicotine 21 MG/24 Hr Patch TRDERM SCH (10:06)
[2022-11-30] MEDS: Aspirin 81 MG Tab.EC PO SCH (10:06)
[2022-11-30] MEDS: Carbidopa/Levodopa 25-250 MG Tab PO SCH ×4 (10:06→20:14)
[2022-11-30] MEDS: Betamethasone Dipropionate/Clotrimazole 0.05-1% Crm 15 GM Tube TOP SCH ×2 (10:07→20:14)
[2022-11-30] MEDS: Fluticasone NASAL Spray 16 GM Bottle NASBOTH SCH ×2 (10:07→20:15)
[2022-11-30] MEDS: Insulin Glarg,Human.Rec.Analog 100 Unit/ML SUBCUT SCH ×2 (10:07→20:18)
[2022-11-30] MEDS: Insulin Lispro 100 Units/ML 3 ML Vial SUBCUT SCH ×3 (10:08→17:12)
[2022-11-30] MEDS: Dextrose 5%-0.9% NaCl 1,000 ML IV SCH (11:29)
[2022-11-30] MEDS: HYDROmorphone 0.5 MG/0.5 ML Syringe IVPUSH PRN (19:15)
[2022-11-30] MEDS: hydrOXYzine HCl 25 MG Tab PO SCH ×2 (19:16→20:15)
[2022-11-30] MEDS: Mirtazapine 15 MG Tab PO SCH ×2 (19:16→20:16)
[2022-11-30] MEDS: atorvaSTATin 10 MG Tab PO SCH ×2 (19:17→20:13)
[2022-11-30] MEDS: Montelukast 10 MG Tab PO SCH ×2 (19:17→20:16)
[2022-12-01] MEDS: HYDROmorphone 0.5 MG/0.5 ML Syringe IVPUSH PRN ×2 (02:46→19:25)
[2022-12-01 05:46] LABS: BASOPHILS PERCENT AUTO 0.3 % (0.0-1.0); EOSINOPHILS PERCENT AUTO 2.5 % (1.0-3.0); HEMATOCRIT 47.7 % (40.0-54.0); HEMOGLOBIN 15.8 g/dL (14.0-18.0); LYMPHOCYTES PERCENT AUTO 36.5 % (20.5-50.1); MEAN CORPUSCULAR HEMOGLOBIN 30.5 pg (27.0-34.0); MEAN CORPUSCULAR HGB CONC 33.1 g/dL (33.0-35.0); MEAN CORPUSCULAR VOLUME 92.1 fL (80-100); MONOCYTES PERCENT AUTO 12.9 % (2-8); NEUTROPHILS PERCENT AUTO 47.8 % (42.2-75.2); PLATELET COUNT,PLT 238 10^3/uL (150-450); RED BLOOD CELL COUNT 5.18 10^6/uL (4.6-6.2); WHITE BLOOD CELL COUNT,WBC 6.4 10^3/uL (5.0-10.0)
[2022-12-01] MEDS: Omeprazole 20 MG Cap.CR PO SCH (05:49)
[2022-12-01 06:09] LABS: A/G RATIO 0.82; ALBUMIN 3.1 g/dL (3.4-5.0); ANION GAP 13.2 mEq/L (7-13); BILIRUBIN TOTAL 0.4 mg/dL (0.2-1.0); BUN/CREATININE RATIO 12.7 (No establ ref range); CALCIUM 8.7 mg/dL (8.5-10.1); CREATININE 0.79 mg/dL (0.70-1.30); EST CRCL DRUG DOSING (CG) 89.49 mL/min; MAGNESIUM 1.6 mg/dL (1.8-2.4); POTASSIUM,K 4.2 mmol/L (3.5-5.1); PROTEIN TOTAL,TP 6.9 g/dL (6.4-8.2)
[2022-12-01] MEDS ORDERED: Magnesium Sulfate/Water 4 GM in Premix Bag 1 BAG IV ONE (06:48)
[2022-12-01] MEDS: Dextrose 5%-0.9% NaCl 1,000 ML IV SCH (07:39)
[2022-12-01] MEDS: Nicotine 21 MG/24 Hr Patch TRDERM SCH (08:47)
[2022-12-01] MEDS: Thiamine 100 MG Tab PO SCH (08:49)
[2022-12-01] MEDS: Acetaminophen 325 MG Tab PO PRN ×2 (08:49→19:08)
[2022-12-01] MEDS: Folic Acid 1 MG Tab PO SCH (08:49)
[2022-12-01] MEDS: QUEtiapine 100 MG Tab PO SCH ×2 (08:50→19:09)
[2022-12-01] MEDS: Loratadine 10 MG Tab PO SCH (08:50)
[2022-12-01] MEDS: chlordiazePOXIDE 25 MG Cap PO SCH (08:50)
[2022-12-01] MEDS: Aspirin 81 MG Tab.EC PO SCH (08:50)
[2022-12-01] MEDS: Multivitamin Tab PO SCH (08:51)
[2022-12-01] MEDS: Fluticasone NASAL Spray 16 GM Bottle NASBOTH SCH ×2 (08:52→19:39)
[2022-12-01] MEDS: Insulin Glarg,Human.Rec.Analog 100 Unit/ML SUBCUT SCH ×2 (08:52→19:39)
[2022-12-01] MEDS: Betamethasone Dipropionate/Clotrimazole 0.05-1% Crm 15 GM Tube TOP SCH ×2 (08:56→20:21)
[2022-12-01] MEDS: Carbidopa/Levodopa 25-250 MG Tab PO SCH ×3 (08:58→19:24)
[2022-12-01] MEDS: Famotidine 20 MG Tab PO SCH ×2 (08:58→19:24)
[2022-12-01] MEDS: Magnesium Oxide 400 MG Tab PO SCH ×2 (08:59→19:24)
[2022-12-01] MEDS: Insulin Lispro 100 Units/ML 3 ML Vial SUBCUT SCH ×4 (09:13→17:23)
[2022-12-01] MEDS: Montelukast 10 MG Tab PO SCH (19:10)
[2022-12-01] MEDS: atorvaSTATin 10 MG Tab PO SCH (19:10)
[2022-12-01] MEDS: hydrOXYzine HCl 25 MG Tab PO SCH (19:10)
[2022-12-01] MEDS: Mirtazapine 15 MG Tab PO SCH (19:11)
[2022-12-02] MEDS: HYDROmorphone 0.5 MG/0.5 ML Syringe IVPUSH PRN ×2 (00:12→19:37)
[2022-12-02] MEDS ORDERED: MVI, Adult with Vitamin K 10 ML, Folic Acid 1 MG, Thiamine 100 MG in Lactated Ringers 1... IV ONE ×8 (06:57→08:30)
[2022-12-02] MEDS: Insulin Lispro 100 Units/ML 3 ML Vial SUBCUT SCH ×3 (07:58→17:20)
[2022-12-02] MEDS: QUEtiapine 100 MG Tab PO SCH ×2 (07:59→20:17)
[2022-12-02] MEDS: chlordiazePOXIDE 25 MG Cap PO SCH (07:59)
[2022-12-02] MEDS: Aspirin 81 MG Tab.EC PO SCH (08:01)
[2022-12-02] MEDS: Multivitamin Tab PO SCH (08:01)
[2022-12-02] MEDS: Thiamine 100 MG Tab PO SCH (08:02)
[2022-12-02] MEDS: Sennosides/Docusate Sodium 50-8.6 MG Tab PO PRN (08:02)
[2022-12-02] MEDS: Folic Acid 1 MG Tab PO SCH (08:02)
[2022-12-02] MEDS: Omeprazole 20 MG Cap.CR PO SCH (08:03)
[2022-12-02] MEDS: Loratadine 10 MG Tab PO SCH (08:03)
[2022-12-02] MEDS: Nicotine 21 MG/24 Hr Patch TRDERM SCH (08:05)
[2022-12-02] MEDS: Fluticasone NASAL Spray 16 GM Bottle NASBOTH SCH ×2 (08:05→20:10)
[2022-12-02] MEDS: Insulin Glarg,Human.Rec.Analog 100 Unit/ML SUBCUT SCH (08:08)
[2022-12-02] MEDS: Carbidopa/Levodopa 25-250 MG Tab PO SCH ×3 (08:11→20:29)
[2022-12-02] MEDS: Famotidine 20 MG Tab PO SCH ×2 (08:13→19:56)
[2022-12-02] MEDS: Magnesium Oxide 400 MG Tab PO SCH ×2 (08:14→19:56)
[2022-12-02] MEDS: Betamethasone Dipropionate/Clotrimazole 0.05-1% Crm 15 GM Tube TOP SCH ×2 (08:17→20:09)
[2022-12-02] MEDS: Ketorolac 30 MG/ML SDV IVPUSH PRN ×3 (10:27→22:26)
[2022-12-02] MEDS: atorvaSTATin 10 MG Tab PO SCH (19:56)
[2022-12-02] MEDS: Montelukast 10 MG Tab PO SCH (19:56)
[2022-12-02] MEDS ORDERED: Insulin Glarg,Human.Rec.Analog 100 Unit/ML SUBCUT SCH (20:00)
[2022-12-02] MEDS: Mirtazapine 15 MG Tab PO SCH (20:17)
[2022-12-02] MEDS: hydrOXYzine HCl 25 MG Tab PO SCH (20:17)
[2022-12-03] MEDS: HYDROmorphone 0.5 MG/0.5 ML Syringe IVPUSH PRN (01:09)
[2022-12-03] MEDS: LORazepam 2 MG/ML SDV IVPUSH PRN (02:12)
[2022-12-03] MEDS: Ketorolac 30 MG/ML SDV IVPUSH PRN (06:34)
[2022-12-03] MEDS: Sodium Chloride 0.9% 10 ML Syringe FLUSH PRN (06:36)
[2022-12-03] MEDS: Betamethasone Dipropionate/Clotrimazole 0.05-1% Crm 15 GM Tube TOP SCH ×2 (07:56→08:28)
[2022-12-03] MEDS: Aspirin 81 MG Tab.EC PO SCH ×2 (08:08→08:09)
[2022-12-03] MEDS: Loratadine 10 MG Tab PO SCH (08:08)
[2022-12-03] MEDS: Folic Acid 1 MG Tab PO SCH (08:08)
[2022-12-03] MEDS: Multivitamin Tab PO SCH (08:08)
[2022-12-03] MEDS: Nicotine 21 MG/24 Hr Patch TRDERM SCH (08:09)
[2022-12-03] MEDS: Omeprazole 20 MG Cap.CR PO SCH (08:12)
[2022-12-03] MEDS: Fluticasone NASAL Spray 16 GM Bottle NASBOTH SCH (08:12)
[2022-12-03] MEDS: Sennosides/Docusate Sodium 50-8.6 MG Tab PO PRN (08:12)
[2022-12-03] MEDS: Magnesium Oxide 400 MG Tab PO SCH (08:13)
[2022-12-03] MEDS: Insulin Lispro 100 Units/ML 3 ML Vial SUBCUT SCH (08:25)
[2022-12-03] MEDS: chlordiazePOXIDE 25 MG Cap PO SCH (08:27)
[2022-12-03] MEDS: QUEtiapine 100 MG Tab PO SCH (08:28)
[2022-12-03] MEDS: Thiamine 100 MG Tab PO SCH (08:28)
[2022-12-03] MEDS: Carbidopa/Levodopa 25-250 MG Tab PO SCH (08:28)
[2022-12-03] MEDS: Famotidine 20 MG Tab PO SCH (08:28)
== END 2022-12-03 10:15 | disposition other institution (70) | DRG 897 ==
LOC: DL.ED 15:46 → DL.MS 17:19 → DL.ED 17:28
PROVIDERS: ADMIT Internal Medicine; ATTEND Internal Medicine
DX: F10.231 Alcohol dependence with withdrawal delirium (principal); E51.2 Wernicke's encephalopathy; I10 Essential (primary) hypertension; E78.00 Pure hypercholesterolemia, unspecified; E87.1 Hypo-osmolality and hyponatremia; E78.5 Hyperlipidemia, unspecified; K21.9 Gastro-esophageal reflux disease without esophagitis; M19.90 Unspecified osteoarthritis, unspecified site; M10.9 Gout, unspecified; F31.9 Bipolar disorder, unspecified; E87.8 Other disorders of electrolyte and fluid balance, not elsewhere classified; E87.6 Hypokalemia; E83.42 Hypomagnesemia; I95.1 Orthostatic hypotension; G47.00 Insomnia, unspecified; E11.65 Type 2 diabetes mellitus with hyperglycemia; G20 Parkinson's disease; H54.7 Unspecified visual loss; F02.80 Dementia in other diseases classified elsewhere, unspecified severity, without behavioral disturbance, psychotic disturbance, mood disturbance, and anxiety; E11.42 Type 2 diabetes mellitus with diabetic polyneuropathy; F41.8 Other specified anxiety disorders; Z79.899 Other long term (current) drug therapy; Z91.148 Patient's other noncompliance with medication regimen for other reason; Z79.82 Long term (current) use of aspirin; Z79.4 Long term (current) use of insulin; Z88.8 Allergy status to other drugs, medicaments and biological substances; Z86.73 Personal history of transient ischemic attack (TIA), and cerebral infarction without residual deficits; Z98.890 Other specified postprocedural states
CPT/HCPCS: 36415; 70450; 80053; 80307; 81003; 82140; 82947; 83605; 83735; 84100; 84443; 85025; 85610; 86140; 93005; 96365; 96375; 97116-GP; 97161-GP; 97166-GO; 97530-GO; 97530-GP; 99284; 99285-25; A9270-GY; J1170; J1630; J1815-GY; J1885; J2060; J3360; J3411; J3475; J3486; J3490; J7030; J7040; J7042; J7120

== ENCOUNTER 2024-06-15 06:52 | Day surgery (SDC) | payer MEDICARE, MEDICAID ==
[~2024-06-15 06:52] MED LIST changes: +Acetaminophen 325 MG Tab PO PRN; +Acetaminophen/Codeine 300-30 MG Tab PO PRN; +Cataract Ophth Solution EYELF ONE; -MVI, Adult with Vitamin K 10 ML, Folic Acid 1 MG, Thiamine 100 MG in Lactated Ringers 1... IV ONE; +Moxifloxacin 0.5% Ophth Soln 3 ML Bottle EYELF ONE; +Ondansetron 4 MG/2 ML SDV IVPUSH PRN; +Phenylephrine 10% Ophth Soln 5 ML Bot EYELF ONE; +Povidone-Iodine 5% Sterile Ophth Soln 30 ML Bottle EYELF ONE; +Proparacaine 0.5% Ophth Soln 15 ML Bottle EYELF ONE; +Sodium Chloride 0.9% 10 ML Syringe FLUSH PRN; +Timolol Maleate 0.5% Ophth Soln 5 ML Bottle EYELF ONE; +Tropicamide 1% Ophth Soln 15 ML Bottle EYELF ONE
[2024-06-15] MEDS ORDERED: Sodium Chloride 0.9% 10 ML Syringe IV ONE (06:53)
[2024-06-15] MEDS ORDERED: Midazolam 1 MG/ML 2 ML SDV IV ONE (06:53)
[2024-06-15] MEDS ORDERED: Dexamethasone 4 MG/ML SDV IV ONE (06:53)
[2024-06-15] MEDS ORDERED: Ondansetron 4 MG/2 ML SDV IVPUSH PRN (07:00)
[2024-06-15] MEDS ORDERED: Acetaminophen/Codeine 300-30 MG Tab PO PRN (07:00)
[2024-06-15] MEDS ORDERED: Acetaminophen 325 MG Tab PO PRN (07:00)
[2024-06-15] MEDS: Proparacaine 0.5% Ophth Soln 15 ML Bottle EYELF ONE ×2 (07:22→08:19)
[2024-06-15] MEDS: Moxifloxacin 0.5% Ophth Soln 3 ML Bottle EYELF ONE (07:23)
[2024-06-15] MEDS: Povidone-Iodine 5% Sterile Ophth Soln 30 ML Bottle EYELF ONE ×2 (07:24→08:19)
[2024-06-15] MEDS: Tropicamide 1% Ophth Soln 15 ML Bottle EYELF ONE (07:25)
[2024-06-15] MEDS: Phenylephrine 10% Ophth Soln 5 ML Bot EYELF ONE (07:25)
[2024-06-15] MEDS: Cataract Ophth Solution EYELF ONE (07:26)
[2024-06-15] MEDS: Timolol Maleate 0.5% Ophth Soln 5 ML Bottle EYELF ONE (07:26)
[2024-06-15] MEDS: Sodium Chloride 0.9% 10 ML Syringe FLUSH PRN (07:30)
[2024-06-15] MEDS: Apraclonidine 0.5% Ophth Soln 5 ML Bot EYELF ONE (08:19)
[2024-06-15] MEDS: Diclofenac Sodium 0.1% Ophth Soln 5 ML Bottle EYELF ONE (08:19)
[2024-06-15] MEDS: Dexamethasone/Neomycin/Polymyxin B Ophth Oint 3.5 GM Tube EYELF ONE (08:22)
[2024-06-15] MEDS: Dexamethasone/Tobramycin 0.1-0.3% Ophth Oint 3.5 GM Tube EYELF ONE (08:22)
[2024-06-15] MEDS: Lidocaine 1% 30 ML SDV ONE (08:24)
[2024-06-15] MEDS: VANCOmycin 500 MG SDV EYELF ONE (08:24)
== END 2024-06-15 09:19 | disposition home or self-care (01) ==
LOC: DL.SDS 06:52
PROVIDERS: ATTEND Ophthalmology
DX: E11.36 Type 2 diabetes mellitus with diabetic cataract (principal); H25.812 Combined forms of age-related cataract, left eye; E11.65 Type 2 diabetes mellitus with hyperglycemia; K21.9 Gastro-esophageal reflux disease without esophagitis; G20.A1 Parkinson's disease without dyskinesia, without mention of fluctuations; F02.80 Dementia in other diseases classified elsewhere, unspecified severity, without behavioral disturbance, psychotic disturbance, mood disturbance, and anxiety; E78.5 Hyperlipidemia, unspecified; Z79.4 Long term (current) use of insulin; Z79.82 Long term (current) use of aspirin; Z79.899 Other long term (current) drug therapy; Z91.048 Other nonmedicinal substance allergy status
CPT/HCPCS: 66984; A9270; J1100; J2250; J3370; J3490

== ENCOUNTER 2024-06-29 06:50 | Day surgery (SDC) | payer MEDICARE, MEDICAID ==
[2024-06-29] MEDS ORDERED: Sodium Chloride 0.9% 10 ML Syringe IV ONE (06:51)
[2024-06-29] MEDS ORDERED: Dexamethasone 4 MG/ML SDV IV ONE (06:51)
[2024-06-29] MEDS ORDERED: Midazolam 1 MG/ML 2 ML SDV IV ONE (06:51)
[2024-06-29] MEDS ORDERED: Acetaminophen 325 MG Tab PO PRN (07:00)
[2024-06-29] MEDS ORDERED: Ondansetron 4 MG/2 ML SDV IVPUSH PRN (07:00)
[2024-06-29] MEDS ORDERED: Acetaminophen/Codeine 300-30 MG Tab PO PRN (07:00)
[2024-06-29] MEDS: Sodium Chloride 0.9% 10 ML Syringe FLUSH PRN (07:12)
[2024-06-29] MEDS: Proparacaine 0.5% Ophth Soln 15 ML Bottle EYERT ONE ×2 (07:27→08:28)
[2024-06-29] MEDS: Moxifloxacin 0.5% Ophth Soln 3 ML Bottle EYERT ONE (07:27)
[2024-06-29] MEDS: Povidone-Iodine 5% Sterile Ophth Soln 30 ML Bottle EYERT ONE ×2 (07:28→08:30)
[2024-06-29] MEDS: Phenylephrine 10% Ophth Soln 5 ML Bot EYERT ONE (07:29)
[2024-06-29] MEDS: Tropicamide 1% Ophth Soln 15 ML Bottle EYERT ONE (07:29)
[2024-06-29] MEDS: Timolol Maleate 0.5% Ophth Soln 5 ML Bottle EYERT ONE (07:30)
[2024-06-29] MEDS: Cataract Ophth Solution EYERT ONE (07:31)
[2024-06-29] MEDS: VANCOmycin 500 MG SDV EYERT ONE (08:38)
[2024-06-29] MEDS: Lidocaine 1% 30 ML SDV ONE (08:38)
[2024-06-29] MEDS: Apraclonidine 0.5% Ophth Soln 5 ML Bot EYERT ONE (08:45)
[2024-06-29] MEDS: Diclofenac Sodium 0.1% Ophth Soln 5 ML Bottle EYERT ONE (08:46)
[2024-06-29] MEDS: Dexamethasone/Neomycin/Polymyxin B Ophth Oint 3.5 GM Tube EYERT ONE (08:46)
== END 2024-06-29 09:45 | disposition home or self-care (01) ==
LOC: DL.SDS 06:50
PROVIDERS: ATTEND Ophthalmology
DX: H25.811 Combined forms of age-related cataract, right eye (principal); K21.9 Gastro-esophageal reflux disease without esophagitis; E66.9 Obesity, unspecified; G20.A1 Parkinson's disease without dyskinesia, without mention of fluctuations; Z79.899 Other long term (current) drug therapy; Z79.4 Long term (current) use of insulin; Z79.82 Long term (current) use of aspirin; Z88.8 Allergy status to other drugs, medicaments and biological substances; Z91.018 Allergy to other foods
CPT/HCPCS: A9270-GY; J1100; J2250; J3370; J3490

== ENCOUNTER 2025-01-05 14:52 | Emergency (ER) | payer MEDICARE, MEDICAID ==
[2025-01-05 15:48] LABS: BASOPHILS PERCENT AUTO 0.5 % (0.0-1.0); EOSINOPHILS PERCENT AUTO 0.9 % (1.0-3.0); LYMPHOCYTES PERCENT AUTO 31.2 % (20.5-50.1); MONOCYTES PERCENT AUTO 11.4 % (2-8); NEUTROPHILS PERCENT AUTO 56.0 % (42.2-75.2); PLATELET COUNT,PLT 256 10^3/uL (150-450); RED BLOOD CELL COUNT 4.87 10^6/uL (4.6-6.2); WHITE BLOOD CELL COUNT,WBC 11.6 10^3/uL (5.0-10.0)
[2025-01-05] MEDS ORDERED: LORazepam 2 MG/ML SDV IVPUSH PRN (15:48)
[2025-01-05] MEDS: LORazepam 2 MG/ML SDV IVPUSH ONE (15:52)
[2025-01-05 16:18] LABS: A/G RATIO 1.3; ALANINE AMINOTRANSFERASE,ALT 19 U/L (16-63); ASPARTATE AMNIOTRANSFERASE,AST 26 U/L (15-37); BILIRUBIN TOTAL 0.7 mg/dL (0.2-1.0); BLOOD UREA NITROGEN,BUN 13 mg/dL (7-18); CARBON DIOXIDE,CO2 27 mmol/L (21-32); CHLORIDE,CL 102 mmol/L (98-107); CREATININE 1.18 mg/dL (0.70-1.30); GLUCOSE RANDOM 142 mg/dL (70-99); POTASSIUM,K 4.2 mmol/L (3.5-5.1); PROTEIN TOTAL,TP 7.7 g/dL (6.4-8.2); SODIUM,NA 140 mmol/L (136-145)
[2025-01-05 16:20] LABS: ESTIMATED GFR 66 mL/min (>=60); LACTIC ACID 4.0 mmol/L (0.4-2.0)
[2025-01-05 17:09] LABS: APPEARANCE,URINE CLEAR (CLEAR); GLUCOSE,URINE 500 (NEGATIVE); OCCULT BLOOD,URINE NEGATIVE (NEGATIVE)
[2025-01-05 18:34] LABS: LACTIC ACID 3.1 mmol/L (0.4-2.0)
[2025-01-05 21:45] LABS: APPEARANCE,URINE CLEAR (CLEAR); GLUCOSE,URINE 500 (NEGATIVE); OCCULT BLOOD,URINE NEGATIVE (NEGATIVE)
== END 2025-01-05 22:11 ==
LOC: DL.ED 14:52
DX: E11.9 Type 2 diabetes mellitus without complications (principal); R79.89 Other specified abnormal findings of blood chemistry; I10 Essential (primary) hypertension; E78.00 Pure hypercholesterolemia, unspecified; Z88.8 Allergy status to other drugs, medicaments and biological substances; Z79.82 Long term (current) use of aspirin; Z79.899 Other long term (current) drug therapy
CPT/HCPCS: 36415; 71045; 80053; 81003; 83605; 84145; 84484; 85025; 87040; 93005; 93010; 96361; 96365; 96375; 99284; J0692; J0696; J2060; J3373; J7030; J7050

== ENCOUNTER 2025-03-18 04:31 | Observation (INO) | payer MEDICARE, MEDICAID ==
[2025-03-18 05:44] LABS: BASOPHILS PERCENT AUTO 0.5 % (0.0-1.0); EOSINOPHILS PERCENT AUTO 0.3 % (1.0-3.0); LYMPHOCYTES PERCENT AUTO 25.3 % (20.5-50.1); MONOCYTES PERCENT AUTO 9.5 % (2-8); NEUTROPHILS PERCENT AUTO 64.4 % (42.2-75.2); PLATELET COUNT,PLT 236 10^3/uL (150-450); RED BLOOD CELL COUNT 5.16 10^6/uL (4.6-6.2); WHITE BLOOD CELL COUNT,WBC 8.6 10^3/uL (5.0-10.0)
[2025-03-18 06:09] LABS: A/G RATIO 1.0; ALANINE AMINOTRANSFERASE,ALT 17.0 U/L (16-63); ASPARTATE AMNIOTRANSFERASE,AST 51.0 U/L (15-37); BILIRUBIN TOTAL 1.0 mg/dL (0.2-1.0); BLOOD UREA NITROGEN,BUN 12.0 mg/dL (7-18); CARBON DIOXIDE,CO2 23.0 mmol/L (21-32); CHLORIDE,CL 99.0 mmol/L (98-107); CREATININE 0.97 mg/dL (0.70-1.30); EST CRCL DRUG DOSING (CG) 72.12 mL/min; GLUCOSE RANDOM 174.0 mg/dL (70-99); POTASSIUM,K 4.6 mmol/L (3.5-5.1); PROTEIN TOTAL,TP 8.2 g/dL (6.4-8.2); SODIUM,NA 138.0 mmol/L (136-145)
[2025-03-18 06:11] LABS: ESTIMATED GFR 83.0 mL/min (>=60)
[2025-03-18] MEDS ORDERED: 50% Dextrose in Water 50 ML Syringe IVPUSH PRN ×2 (09:47→11:46)
[2025-03-18 10:24] LABS: T4 FREE 0.82 ng/dL (0.76-1.46); TSH ULTRASENSITIVE 0.66 uIU/mL (0.36-3.74)
[2025-03-18 10:28] LABS: FOLIC ACID > 20.0 ng/mL (8.6-58.9)
[2025-03-18] MEDS: Insulin Glarg,Human.Rec.Analog 100 Unit/ML 10 ML Vial SUBCUT SCH (12:44)
[2025-03-18] MEDS: Heparin Sodium 5,000 Units/ML Vial SUBCUT SCH (14:42)
[2025-03-19] MEDS: Omeprazole 20 MG Cap.CR PO SCH (05:22)
[2025-03-19 06:09] LABS: BASOPHILS PERCENT AUTO 0.5 % (0.0-1.0); EOSINOPHILS PERCENT AUTO 2.7 % (1.0-3.0); LYMPHOCYTES PERCENT AUTO 48.3 % (20.5-50.1); MONOCYTES PERCENT AUTO 11.4 % (2-8); NEUTROPHILS PERCENT AUTO 37.1 % (42.2-75.2); PLATELET COUNT,PLT 215 10^3/uL (150-450); RED BLOOD CELL COUNT 4.63 10^6/uL (4.6-6.2); WHITE BLOOD CELL COUNT,WBC 7.4 10^3/uL (5.0-10.0)
[2025-03-19 06:29] LABS: BLOOD UREA NITROGEN,BUN 13.0 mg/dL (7-18); CARBON DIOXIDE,CO2 29.0 mmol/L (21-32); CHLORIDE,CL 107.0 mmol/L (98-107); CREATINE KINASE,CK 422.0 U/L (39-308); CREATININE 0.85 mg/dL (0.70-1.30); EST CRCL DRUG DOSING (CG) 82.3 mL/min; GLUCOSE RANDOM 143.0 mg/dL (70-99); PHOSPHORUS 3.7 mg/dL (2.6-4.7); POTASSIUM,K 4.6 mmol/L (3.5-5.1); SODIUM,NA 144.0 mmol/L (136-145)
[2025-03-19 06:30] LABS: ESTIMATED GFR 93.0 mL/min (>=60)
[2025-03-19] MEDS ORDERED: NIACIN PO SCH (09:00)
[2025-03-19] MEDS ORDERED: PYRIDOXINE PO SCH (09:00)
[2025-03-19] MEDS ORDERED: THIAMINE PO SCH (09:00)
[2025-03-19] MEDS ORDERED: PANTOTHENIC ACID PO SCH (09:00)
[2025-03-19] MEDS ORDERED: ASCORBIC ACID PO SCH (09:00)
[2025-03-19] MEDS ORDERED: CYANOCOBALAMIN PO SCH (09:00)
[2025-03-19] MEDS ORDERED: FOLIC ACID PO SCH (09:00)
[2025-03-19] MEDS ORDERED: [UNRECOGNIZED DRUG - OTHER] PO SCH (09:00)
[2025-03-19] MEDS ORDERED: RIBOFLAVIN PO SCH (09:00)
[2025-03-19] MEDS: Multivitamins with Iron/Calcium/Folic Acid/Minerals Tab PO SCH (09:06)
[2025-03-19] MEDS: Cholecalciferol (Vitamin D3) 25 MCG Tab PO SCH (09:07)
== END 2025-03-19 13:00 | disposition home or self-care (01) ==
LOC: DL.ED 04:31 → DL.MS 06:25
PROVIDERS: ADMIT Hospitalist; ATTEND Hospitalist
DX: R29.6 Repeated falls (principal); R45.1 Restlessness and agitation; F31.9 Bipolar disorder, unspecified; F41.8 Other specified anxiety disorders; I10 Essential (primary) hypertension; K21.9 Gastro-esophageal reflux disease without esophagitis; E11.9 Type 2 diabetes mellitus without complications; E78.00 Pure hypercholesterolemia, unspecified; Z79.82 Long term (current) use of aspirin; Z91.09 Other allergy status, other than to drugs and biological substances; Z79.899 Other long term (current) drug therapy
CPT/HCPCS: 36415; 80048; 80053; 82550; 82607; 82746; 82947; 83735; 84100; 84439; 84443; 85025; 86592; 93005; 99222; 99239; 99285; A9270; J1644; J1815; J7030; 99284